=== PATIENT | female | born 1975 | race Caucasian/White ===

== ENCOUNTER 2023-08-14 14:25 | Outpatient (OUT) | payer MEDICAID, SELFPAY ==
--- NOTE | 2023-08-14 14:35 | XR_ITS ---
The [address] [address] Patient Name: RAJESH KOROMA MRN: [id number] date: 1975 Sex: F Assigned Patient Location: [facility] Current Patient Location: Accession/Order Number: [id number] Exam Date: 08/14/2023 14:43 Report Date: 08/15/2023 11:34 At the request of: ARMINDA JOHNSTON Procedure: XR knee RT 4V PROCEDURE: XR knee RT 4V HISTORY: Right Knee Pain M25.561 COMPARISON: None. FINDINGS: BONES:No fracture, acute abnormality, or significant arthropathy. SOFT TISSUES:No visible soft tissue swelling. EFFUSION:None visible. OTHER: Negative. XR/XR knee RT 4V IMPRESSION: 1. No acute bone abnormality or appreciable degenerative changes. Electronically authenticated by: JEWELL MCQUEEN Date: 08/15/2023 11:34
== END 2023-08-14 14:26 | disposition home or self-care (01) ==
PROVIDERS: PCP Family Medicine; Visit Provider Nurse Practitioner Family
DX: M25.561 Pain in right knee (principal); W19.XXXA Unspecified fall, initial encounter
CPT/HCPCS: 73564

== ENCOUNTER 2023-11-08 12:56 | Outpatient (OUT) | payer MEDICAID, SELFPAY ==
--- NOTE | 2023-11-08 | XR_ITS ---
The [address] [address] Patient Name: RAJESH KOROMA MRN: [id number] date: 1975 Sex: F Assigned Patient Location: [facility] Current Patient Location: [facility] Accession/Order Number: [id number] Exam Date: 11/08/2023 13:25 Report Date: 11/08/2023 14:07 At the request of: ARNULFO SMITH Procedure: XR foot GEORGINA min 3V EXAMINATION: XR foot GEORGINA min 3V HISTORY: BILATERAL FOOT PAIN COMPARISON: No relevant comparison available. FINDINGS: RIGHT FINDINGS: BONES: Normal. No significant arthropathy or acute abnormality. Enthesopathic spurring plantar calcaneus SOFT TISSUES: Negative. No visible soft tissue swelling. OTHER: Negative. LEFT FINDINGS: BONES: Normal. No significant arthropathy or acute abnormality. Enthesopathic spurring plantar calcaneus SOFT TISSUES: Negative. No visible soft tissue swelling. OTHER: Negative. XR/XR foot GEORGINA min 3V IMPRESSION: RIGHT CONCLUSION: Enthesopathic spurring plantar calcaneus LEFT CONCLUSION: Enthesopathic spurring plantar calcaneus Electronically authenticated by: FRANKIE PIERCE Date: 11/08/2023 14:07
--- OUTSIDE RECORDS SUMMARY | 2023-11-08 12:58 | XMS_ITS | CCD ---
Author Name Unknown Address [address] [place] [address] [id number] [place] [address] Organization [facility] Care Team Providers Care Python Engineer Name Role Phone DARRICK HUMPHRIES Unavailable Unavailable CICI CRENSHAW Unavailable Unavailable CICI CRENSHAW Primary Care Physician JEREMIAH OSWALD Attending Unavailable DR JEWELL MCQUEEN Consulting Unavailable DR CICI CRENSHAW Primary Care Unavailable JEREMIAH OSWALD Admitting Unavailable JEREMIAH OSWALD Consulting Unavailable Lila Junior Unavailable [phone] Allergies Allergy Classification Reported Allergen(s) Allergy Type Date of Onset Reaction(s) Facility (1 source) Desonide Drug Allergy [facility] Repository (5 sources) Adhesive agent Drug allergy Unknown [email or web address] Other (5 sources) Adhesive Tape Drug allergy Comment:mitzy howard [email or web address] Other (5 sources) CT scan dye Propensity to adverse reactions vomiting [email or web address] Other (5 sources) Dye CUSTODIAL Red 40 ([place] Red) *PHARMACEUTICAL ADJUV Propensity to adverse reactions 4 Unknown [email or web address] Other Medications Current Medications Medication Drug Class(es) Dates Sig (Normalized) Sig (Original) acetaminophen 325 mg / HYDROcodone bitartrate 5 mg oral tablet (2 sources) Opioid Agonist Start: 6 [place] 325 mg-5 mg oral tablet 2 tab(s), Oral, q4hr for pain, 40 tab(s), Refill(s) 0 Start Date: 03/01/16 Status: Ordered amoxicillin 875 mg / clavulanate 125 mg oral tablet (1 source) Penicillin-class Antibacterial Start: 3 take 1 tablet by mouth every twelve hours Amoxicillin-Pot Clavulanate 875-125 MG 1 tablet Orally every 12 hrs for 7 days Jun, Active busPIRone hydrochloride 5 mg oral tablet (1 source) Start: 3 take 1 tablet by mouth every twelve hours busPIRone HCl 5 MG 1 tablet Orally Twice a day for 30 days Sep, Active cyclobenzaprine hydrochloride 10 mg oral tablet (2 sources) Muscle Relaxant Start: 3 take 1 tablet by mouth every twenty-four hours Cyclobenzaprine HCl 10 MG 1 tablet at bedtime as needed Orally Once a day for 10 days Aug, Active methylPREDNISolone 4 mg oral tablet (2 sources) Corticosteroid Start: 3 methylPREDNISolone 4 MG as directed Orally daily for 6 days Aug, Active naproxen 500 mg oral tablet (1 source) Nonsteroidal Anti-inflammatory Drug Start: 6 Naprosyn 500 mg Tab 500 mg = 1 tab(s), Oral, PRN as needed for pain, Refills(s) 0 Start Date: 02/14/16 Status: Ordered OTC stool softner (1 source) Start: 6 OTC stool softner OTC stool softner, one t ab, Oral, PRN constipation Start Date: 02/14/16 Status: Ordered SUMAtriptan 50 mg oral tablet (1 source) Serotonin-1b and Serotonin-1d Receptor Agonist Start: 6 take 1 tablet by mouth once daily SUMAtriptan 50 mg Tab 50 mg = 1 tab(s), Oral, Daily, Refills(s) 0, Migraine headache Start Date: 02/14/16 Status: Ordered Completed/Discontinued Medications Medication Drug Class(es) Dates Sig (Normalized) Sig (Original) lubiprostone 0.024 mg oral capsule (1 source) Chloride Channel Activator Start: 02-14-2016 take 1 capsule by mouth twice daily Amitiza 24 mcg Cap 24 microgram = 1 cap(s), Oral, BID, # 60 cap(s), Refills(s) 0 Start Date: 02/14/16 Status: Ordered Toradol 30 mg/ml (2 sources) Start: 08-28-2023 Toradol 30 mg/ml Aug, 60 mg Problems Active Problems Problem Classification Problem Date Documented Da te Episodic/Chronic Abdominal pain (4 sources) Unspecified abdominal pain; Translations: [UNSPECIFIED ABDOMINAL PAIN] Onset: 10-31-2022 Episodic Anxiety disorders (2 sources) Anxiety; Translations: [Anxiety disorder, unspecified] Chronic E Codes: Fall (1 source) Unspecified fall, initial encounter Episodic E Codes: Natural/environment (1 source) Exposure to other specified factors, initial encounter; Translations: [EXPOSURE OTHER SPEC FACTORS INITIAL] Onset: 11-02-2022 Episodic Genitourinary symptoms and ill-defined conditions (5 sources) Mixed incontinence; Translations: [Mixed urinary incontinence] Chronic Headache; including migraine (1 source) Migraine 02-14-2016 Chronic Mood disorders (1 source) Depression 02-15-2022 Chronic Nonmalignant breast conditions (5 sources) Nodule of skin of breast; Translations: [Unspecified lump in unspecified breast] Episodic Other connective tissue disease (1 source) Fibromyalgia 02-15-2022 Episodic Other connective tissue disease (1 source) Foot pain 02-14-2016 Episodic Other gastrointestinal disorders (5 sources) Irritable bowel syndrome; Translations: [Irritable bowel syndrome without diarrhea] 02-14-2016 Chronic Other gastrointestinal disorders (1 source) Irritable bowel syndrome without diarrhea; Translations: [Irritable bowel syndrome] Chronic Other gastrointestinal disorders (5 sources) Irritable bowel syndrome characterized by constipation; Translations: [Irritable bowel syndrome with constipation] Chronic Other gastrointestinal disorders (1 source) Other constipation; Translations: [Other constipation] Onset: 02-15-2022 Episodic Other gastrointestinal disorders (1 source) Chronic constipation 02-15-2022 Episodic Other gastrointestinal disorders (5 sources) Constipation; Translations: [Constipation, unspecified] Episodic Other non-traumatic joint disorders (1 source) Pain in left knee; Translations: [Acute pain of left knee] Episodic Other non-traumatic joint disorders (2 sources) Pain in right knee; Translations: [Acute pain of right knee] Episodic Other non-traumatic joint disorders (8 sources) Arthralgia of the lower leg; Translations: [Pain in left knee] Episodic Other nutritional; endocrine; and metabolic disorders (5 sources) Body mass index 30+ - obesity; Translations: [Body mass index (BMI) 32.0-32.9, adult] Chronic Other skin disorders (1 source) Hyperhidrosis 02-18-2016 Episodic Other upper respiratory infections (1 source) Acute maxillary sinusitis, unspecified Episodic Spondylosis; intervertebral disc disorders; other back problems (6 sources) Muscle spasm of back; Translations: [Low back pain] Onset: 11-02-2022 Episodic Sprains and strains (1 source) Strain of muscle, fascia and tendon of lower back, initial encounter; Translations: [STRAIN MUSC FASC TENDON LW BACK INT] Onset: 11-02-2022 Episodic Unclassified (1 source) Low back pain, unspecified; Translations: [Low back pain, unspecified] Past or Other Problems Problem Classification Problem Date Documented Da te Episodic/Chronic Suicide and intentional self-inflicted injury (2 sources) Suicidal thoughts; Translations: [Suicide attempt ] Onset: 10-22-1994 02-15-2022 Episodic Viral infection (5 sources) Disease caused by 2019-nCoV; Translations: [COVID-19] Results Test Name Value Interpretation Reference Range Facility AMYLASEon 10-31-2022 Amylase [Catalytic activity/Vol] 82 U/L Normal 25-115 [facility] Comment on above: Performed By: #### A MY LIPA #### [facility] [address] [place] [address] Dr. Amita Leyva CBC AUTO DIFFon 10-31-2022 BASO # 0.0 103/ul Normal 0.0-0.1 [facility] Comment on above: Performed By: #### C BC #### [facility] [address] [place] [address] Dr. Amita Leyva Basophils/100 WBC (Bld) 0.5 % Normal 0.2-2.0 [facility] Comment on above: Performed By: #### C BC #### [facility] [address] [place] [address] Dr. Amita Leyva EO # 0.2 103/ul Normal 0.0-0.7 [facility] Comment on above: Performed By: #### C BC #### [facility] [address] [place] [address] Dr. Amita Leyva Eosinophils/100 WBC (Bld) 2.7 % Normal 0.9-7.0 [facility] Comment on above: Performed By: #### C BC #### [facility] [address] [place] [address] Dr. Amita Leyva Erythrocyte distribution width (RBC) [Ratio] 12.4 % Normal 11.0-15.0 [facility] Comment on above: Performed By: #### C BC #### [facility] [address] [place] [address] Dr. Amita Leyva Hematocrit (Bld) [Volume fraction] 40.8 % Normal 36.0-48.0 [facility] Comment on above: Performed By: #### C BC #### [facility] [address] [place] [address] Dr. Amita Leyva Hemoglobin (Bld) [Mass/Vol] 14.1 g/dL Normal 12.0-16.0 [facility] Comment on above: Performed By: #### C BC #### [facility] [address] [place] [address] Dr. Amita Leyva IG # 0.02 10e3/ul Normal 0.00-0.03 [facility] Comment on above: Performed By: #### C BC #### [facility] [address] [place] [address] Dr. Amita Leyva IG % 0.4 % Normal 0.0-0.5 [facility] Comment on above: Performed By: #### C BC #### [facility] [address] [place] [address] Dr. Amita Leyva LYMPH # 1.9 103/ul Normal 1.2-3.8 [facility] Comment on above: Performed By: #### C BC #### [facility] [address] [place] [address] Dr. Amita Leyva Lymphocytes/100 WBC (Bld) 33.3 % Normal 20.5-60.0 [facility] Comment on above: Performed By: #### C BC #### [facility] [address] [place] [address] Dr. Amita Leyva MANUAL DIFF REQ NO Normal [facility] Comment on above: Performed By: #### C BC #### [facility] [address] [place] [address] Dr. Amita Leyva MCH (RBC) [Entitic mass] 30.4 pg Normal 26.7-34.0 [facility] Comment on above: Performed By: #### C BC #### [facility] [address] [place] [address] Dr. Amita Leyva MCHC (RBC) [Mass/Vol] 34.6 g/dL Normal 29.9-35.2 [facility] Comment on above: Performed By: #### C BC #### [facility] [address] [place] [address] Dr. Amita Leyva MCV (RBC) [Entitic vol] 87.9 fL Normal 81.0-99.0 [facility] Comment on above: Performed By: #### C BC #### [facility] [address] [place] [address] Dr. Amita Leyva MONO # 0.4 103/ul Normal 0.3-0.8 [facility] Comment on above: Performed By: #### C BC #### [facility] [address] [place] [address] Dr. Amita Leyva Monocytes/100 WBC (Bld) 7.7 % Normal 1.7-12.0 [facility] Comment on above: Performed By: #### C BC #### [facility] [address] [place] [address] Dr. Amita Leyva NEUT # 3.1 103/ul Normal 1.4-6.5 [facility] Comment on above: Performed By: #### C BC #### [facility] [address] [place] [address] Dr. Amita Leyva Neutrophils/100 WBC (Bld) 55.4 % Normal 43.0-75.0 [facility] Comment on above: Performed By: #### C BC #### [facility] [address] [place] [address] Dr. Amita Leyva Platelet mean volume (Bld) [Entitic vol] 9.9 fL Normal 9.5-13.5 [facility] Comment on above: Performed By: #### C BC #### [facility] [address] [place], [place] [id number] Dr. Amita Leyva PLT 313 103/ul Normal 150-450 [facility] Comment on above: Performed By: #### C BC #### [facility] [address] [place] [address] Dr. Amita Leyva RBC 4.64 106/ul Normal 4.20-5.40 [facility] Comment on above: Performed By: #### C BC #### [facility] [address] [place] [address] Dr. Amita Leyva WBC 5.6 103/ul Normal 4.0-11.0 [facility] Comment on above: Performed By: #### C BC #### [facility] [address] [place] [address] ABD/PELVIS WO CONon 10-31 CT ABD/PELVIS WO CON EXAMINATION: CT ABD/PELVIS WO CON HISTORY: CALCULUS OF KIDNEY ; acute right flank pain COMPARISON: No relevant comparison available. TECHNIQUE: Axial, Coronal, and Sagittal images were obtained without and/or with IV contrast as indicated by examination type. Dose reduction techniques were achieved by using automated exposure control and/or adjustment of mA and/or kV according to patient size and/or use of iterative reconstruction technique. FINDINGS: LUNG BASES: No visible pulmonary or pleural disease. LIVER: No enlargement, atrophy, suspicious density, or significant focal lesion. BILIARY: Slightly indistinct margins of the gallbladder without appreciable stones or abnormal duct dilation. PANCREAS: Minimal haziness of fat along the inferior margin of head of pancreas. No lesion, fluid collection, or abnormal duct dilatation. SPLEEN: No enlargement or focal lesion. ADRENALS: No mass or enlargement. KIDNEYS: No mass, obstruction, or calcification. BOWEL/MESENTERY: No visible mass, obstruction, or bowel wall thickening. Normal appendix. AORTA/VASCULAR: No aneurysm or dissection. RETROPERITONEUM: No mass or adenopathy. LYMPH NODES: No adenopathy. URINARY BLADDER: No visible focal wall thickening, lesion, or calculus. PELVIC ORGANS: No visible mass. Pelvic organs appropriate for patient age. ABDOMINAL WALL: No mass or hernia. BONES: L5-S1 marked degenerative disc disease. OTHER: Negative. IMPRESSION: 1. No urinary tract calculi obstructive uropathy. 2. Possible mild cholecystitis or mild pancreatitis. Correlate with clinical symptoms. 3. Unremarkable bowel. Normal appendix. Electronically authenticated by: JEWELL MCQUEEN Date: 2022-10-31 11:31 Normal [facility] ER URINE PROFILEon 3 Bilirubin Ql (U) Negative Normal NEGATIVE [facility] Comment on above: Performed By: #### E RUR, PREGU #### [facility] [address] [address] [address] Amita Leyva Clarity (U) CLEAR Normal CLEAR [facility] Comment on above: Performed By: #### E RUR, PREGU #### [facility] [address] [place] [address] Dr. Amita Leyva Color (U) LT. YELLOW Normal YELLOW [facility] Comment on above: Performed By: #### E RUR, PREGU #### [facility] [address] [place] [address] Dr. Amita Leyva ERUAHD A micrscopic examina tion will be performed if indicated. Normal [facility] Comment on above: Performed By: #### E RUR, PREGU #### [facility] [address] [place] [address] Dr. Amita Leyva Glucose Ql (U) Negative Normal NEGATIVE [facility] Comment on above: Performed By: #### E RUR, PREGU #### [facility] [address] [place] [address] Dr. Amita Leyva Hemoglobin Ql (U) Negative Normal NEGATIVE [facility] Comment on above: Performed By: #### E RUR, PREGU #### [facility] [address] [place] [address] Dr. Amita Leyva Ketones Ql (U) Negative Normal NEGATIVE [facility] Comment on above: Performed By: #### E RUR, PREGU #### [facility] [address] [place] [address] Dr. Amita Leyva LEUKOCYTES Negative Normal NEGATIVE [facility] Comment on above: Performed By: #### E RUR, PREGU #### [facility] [address] [place] [address] Dr. Amita Leyva Nitrite Ql (U) Negative Normal NEGATIVE [facility] Comment on above: Performed By: #### E RUR, PREGU #### [facility] [address] [place] [address] Dr. Amita Leyva pH (U) 6.0 [pH] Normal 5-9 [facility] Comment on above: Performed By: #### E RUR, PREGU #### [facility] [address] [place] [address] Dr. Amita Leyva SPEC GRAVITY >=1.030 Abnormal 1.005-<=1.025 [facility] Comment on above: Performed By: #### E RUR, PREGU #### [facility] [address] [place] [address] Dr. Amita Leyva UA PROTEIN Negative Normal NEGATIVE/ TRACE [facility] Comment on above: Performed By: #### E RUR, PREGU #### [facility] [address] [place] [address] Dr. Amita Leyva UR MICRO IND NOT INDICATED Normal [facility] Comment on above: Performed By: #### E RUR, PREGU #### [facility] [address] [place] [address] Dr. Amita Leyva Urobilinogen Qn (U) 0.2 {Selina'U}/dL Normal 0.2 - 1.0 [facility] Comment on above: Performed By: #### E RUR, PREGU #### [facility] [address] [place] [address] Dr. Amita Leyva LIPASEon 10-31-2022 Lipase [Catalytic activity/Vol] 152.0 U/L Normal 73.0-393.0 [facility] Comment on above: Performed By: #### A MY, LIPA #### [facility] [address] [place] [address] Dr. Amita Leyva URon 10-31-2022 , QUAL Negative Normal NEGATIVE [facility] Comment on above: Performed By: #### E RUR, PREGU #### [facility] [address] [place] [address] Dr. Amita Leyva PROF 14(COMP METB)on 023 Albumin [Mass/Vol] 4.3 g/dL Normal 3.4-5.0 [facility] Comment on above: Performed By: #### C MP #### [facility] [address] [place] [address] Dr. Amita Leyva Albumin/Globulin [Mass ratio] 1.3 {ratio} Normal [facility] Comment on above: Performed By: #### C MP #### [facility] [address] [place] [address] Dr. Amita Leyva ALP [Catalytic activity/Vol] 69 U/L Normal 46-116 [facility] Comment on above: Performed By: #### C MP #### [facility] [address] [place] [address] Dr. Amita Leyva ALT [Catalytic activity/Vol] 18 U/L Normal 14-59 [facility] Comment on above: Performed By: #### C MP #### [facility] [address] [place] [address] Dr. Amita Leyva Anion gap [Moles/Vol] 13.5 mmol/L Normal [facility] Comment on above: Performed By: #### C MP #### [facility] [address] [place] [address] Dr. Amita Leyva AST [Catalytic activity/Vol] 21 U/L Normal 15-37 [facility] Comment on above: Performed By: #### C MP #### [facility] [address] [place] [address] Dr. Amita Leyva Bilirubin [Mass/Vol] 0.3 mg/dL Normal 0.2-1.0 [facility] Comment on above: Performed By: #### C MP #### [facility] [address] [place] [address] Dr. Amita Leyva Calcium [Mass/Vol] 9.2 mg/dL Normal 8.5-10.1 [facility] Comment on above: Performed By: #### C MP #### [facility] [address] [place] [address] Dr. Amita Leyva Chloride [Moles/Vol] 105 mmol/L Normal 98-107 [facility] Comment on above: Performed By: #### C MP #### [facility] [address] [address] [address] Amita Leyva CO2 [Moles/Vol] 26.6 mmol/L Normal 21.0-32.0 [facility] Comment on above: Performed By: #### C MP #### [facility] [address] [address] [address] Amita Leyva Creatinine [Mass/Vol] 0.76 mg/dL Normal 0.55-1.02 [facility] Comment on above: Performed By: #### C MP #### [facility] [address] [place] [address] Dr. Amita Leyva EGFR-AF MEXICAN >60 Normal >=60 [facility] Comment on above: Performed By: #### C MP #### [facility] [address] [address] [address] Amita Leyva EGFR-NON AF MEXICAN >60 Normal >=60 [facility] Comment on above: Performed By: #### C MP #### [facility] [address] [address] [address] Amita Leyva Globulin (S) [Mass/Vol] 3.2 g/dL Normal [facility] Comment on above: Performed By: #### C MP #### [facility] [address] [address] [address] Amita Leyva Glucose [Mass/Vol] 124 mg/dL Critically high 74-106 [facility] Comment on above: Performed By: #### C MP #### [facility] [address] [address] [address] Amita Leyva Potassium [Moles/Vol] 4.1 mmol/L Normal 3.5-5.1 [facility] Comment on above: Performed By: #### C MP #### [facility] [address] [address] [address] Amita Leyva Protein [Mass/Vol] 7.5 g/dL Normal 6.4-8.2 [facility] Comment on above: Performed By: #### C MP #### [facility] [address] [place], [place] [address] Dr. Amita Leyva Sodium [Moles/Vol] 141 mmol/L Normal 136-145 [facility] Comment on above: Performed By: #### C MP #### [facility] [address] [place], [place] [address] Dr. Amita Leyva Urea nitrogen [Mass/Vol] 16.0 mg/dL Normal 7.0-18.0 [facility] Comment on above: Performed By: #### C MP #### [facility] [address] [place], [place] [address] Dr. Amita Leyva Urea nitrogen/Creatinin e [Mass ratio] 21.1 mg/mg Normal [facility] Comment on above: Performed By: #### C MP #### [facility] [address] [address] [address] Amita Leyva US SINGLE QUAD RT UPPERon US SINGLE QUAD RT UPPER EXAMINATION: US SINGLE QUAD RT UPPER HISTORY: Pain ; acute right flank pain COMPARISON: CT abdomen pelvis 10/31/2022 TECHNIQUE: Transabdominal evaluation of the right upper quadrant. FINDINGS: LIVER: Normal size and echotexture. Color Doppler demonstrates patent hepatic veins. PORTAL VEIN: Duplex Doppler demonstrates normal hepatopetal flow pattern with flow velocity averaging 49 cm/s. GALLBLADDER: No visible gallstones, wall thickening, or pericholecystic free fluid. Negative sonographic Lynch's sign. BILIARY: No abnormal dilation or stones. Common bile duct diameter is within normal limits. PANCREASE: No visible mass, abnormal atrophy, or duct dilation. KIDNEY: No hydronephrosis. No visible mass or stones. Size: 11.7 x 4.8 x 5.6 cm IMPRESSION: 1. No ultrasound evidence of cholelithiasis or cholecystitis; wall thickness is within normal limits. 2. No specific findings to account for patient's symptoms. Electronically authenticated by: JEWELL MCQUEEN Date: 2022-10-31 13:17 Normal [facility] Registrationon 12-02-2021 Registration [id number]#1.00CD:[address] [facility] Cons[place] 11-28-2021 Consent [id number]#[id number]:12 7 Normal [facility] Registrationon 11-28-2021 Registration [id number]#1.00CD:[address] [facility] CNPNon 02-22-2018 CNPN Telephone (GASTTW) Kourtney LUA ([id number]) 1975 FDate Time Provider Department02/22/18 DARRICK HUMPHRIES GASTTW During your visit today, we recorded the following information about you:Mariano Horner 02/22/2018 10:36 AM AddendumLeonela Lua is calling Darrick Humphries today with concern regarding IBSand hemorrhoids. Patient relays she has rectal bleeding from her internal andexternal hemorrhoids so bad that she went to an ED. Patient relays that hercolorectal surgeon will not perform her hemorrhoid surgery until her IBS isunder control. Patient states the Trulance is not helping her at all.Patient has been identified by name and birthdate.Duration of symptoms: N/APerson calling: selfCall patient at: on [phone] (home) [phone] (cell)Was an appointment scheduled: NoClosing statement:Symptom Call: Thank you for calling [facility], your call is veryimportant. A nurse will call in approximately 2-4 hours during business hours.If this is an emergency, please contact 911.Mariano Freeman PsrPt advised to add Miralax to her regimen.Darrick Humphries MD, MPHLisette Mock ([place]) 02/22/2018 10:48 AM SignedPlease advise per message below. ThanksSARA MIKE, MAMrenita 2017 10:47 AMAleida PSRMargie 03/04/2018 3:46 PM SignedPatient is calling in regards to message below. Patient is suppose to havesurgery and the general surgeon will not do surgery on her until the IBS isunder control. Patient would like to know if she can get a letter written to beoff work til she is seen by Dr. Humphries. Please advise [phone], Kaitlin (Rn), RN 03/04/2018 3:52 PM SignedPlease see pt message and advise.Thank you.Barbara Brown 2017 3:52 PMAllergies As of Date: 02/22/2018(No Known Allergies)Date Reviewed: 01/15/2018Reviewed by: Dada YeagerRn), RN - Fully AssessedReason for Visit: IBS and hemorrhoids [Other]Reason For Visit History RecordedPrescriptions as of 02/22/2018 Sig: PLECANATIDE 3 MG TABLET Take 1 tablet by mouth once d* PREMARIN ORAL Take 1 tablet by mouth once d* DAILY FIBER ORAL Take 1 capsule by mouth three* LINACLOTIDE 72 MCG CAPSULE Take 1 capsule by mouth once * DICYCLOMINE 10 MG CAP (BENTYL* Take 10 mg by mouth as needed. FIBERCON 625 MG TABLET Take one(1) tablet daily. ONE-A-DAY WITHIN TABLET Take one(1) tablet daily. ULTRACET 37.5 MG-325 MG TABLET two tablets at bedtime LEXAPRO 10 MG TABLET Take one(1) tablet daily. TYLENOL PM 25 MG-500 MG TABLET two tablets at bedtime DULCOLAX (BISACODYL) 5 MG TAB* two tablets at bedtimeProblem List As Of Date: 02/22/2018(None) Status:Closed by DARRICK HUMPHRIES MD on 03/01/18 [facility] [place] 01-16-2018 [facility] Telephone (GASTTW) Kourtney LUA ([id number]) 1975 FDate Time Provider Department01/16/18 DARRICK HUMPHRIES During your visit today, we recorded the following information about you:Dada Yeager RN, RN 01/16/2018 10:20 AM SignedPA initiated for Trulance via Cover My Meds.Awaiting determination.[facility] 2017 10:20 AMDada Yeager RN, RN 01/17/2018 1:03 PM SignedPA for trulance approved via cover my meds.Approved on January 16CaseId:[id number],Status: ApprovedCoverage Start Date:12/17/2017;Coverage End Date:01/16/2019CaseId:[id number] notified.Dada Yeager RNSt[facility] 2017 1:03 PMAllergies As of Date: 01/16/2018(No Known Allergies)Date Reviewed: 01/15/2018Reviewed by: Dada Waldrop) MATIAS Yeager - Fully AssessedReason for Visit: Insurance Authorization [[id number]]Prescriptions as of 01/16/2018 Sig: PREMARIN ORAL Take 1 tablet by mouth once d* DAILY FIBER ORAL Take 1 capsule by mouth three* LINACLOTIDE 72 MCG CAPSULE Take 1 capsule by mouth once * DICYCLOMINE 10 MG CAP (BENTYL* Take 10 mg by mouth as needed. PLECANATIDE 3 MG TABLET Take 1 tablet by mouth once d* FIBERCON 625 MG TABLET Take one(1) tablet daily. ONE-A-DAY WITHIN TABLET Take one(1) tablet daily. ULTRACET 37.5 MG-325 MG TABLET two tablets at bedtime LEXAPRO 10 MG TABLET Take one(1) tablet daily. TYLENOL PM 25 MG-500 MG TABLET two tablets at bedtime DULCOLAX (BISACODYL) 5 MG TAB* two tablets at bedtimeProblem List As Of Date: 01/16/2018(None) Status:Closed by DADA YEAGER on 01/16/18 [facility] CNCOon 01-15-2018 CNCO Letter Wilmer Lua:How to activate your [facility] Utility Funding Account 1. Visit the Utility Funding Signup page at [email or web address] 2. Identify yourself using your one-time use activation code: [email or web address] 3. Follow the on-screen prompts to choose your own secure username andpasswordThe following information will be necessary to access your account for thefirst time:Information needed for sign-up:Your custom activation code used one-time only for the initial accountset-up.Your date of birthThe last 4 digits of your social security numberWhat to do next:Fill in the requested information on the Identify Yourself Form [email or web address] , click Next.Create your login and password, choose a Utility Funding ID and password that will beeasy for you to use, but impossible for anyone else to guess.Pick a security question that will assist you in the event you forget yourpassword the next time you log-on.If you have difficulty activating your account, please call our [employer] at [phone] or toll free at .We hope you enjoy using Utility Funding!Kindest Regards,[facility] Utility Funding Team [facility] CNOVon 01-15-2018 CNOV Office Visit (GASTTW) Kourtney LUA ([id number]) 1975 FDate Time Provider Department01/15/18 2:40 PM DARRICK HUMPHRIES During your visit today, we recorded the following information about you: Pulse Respiration Blood pressure Weight 64/minute 16/minute 143/88 84.4 kgBrebell Humphries MD, MPH 01/15/2018 2:52 PM SignedNAME: Leonela JaimengerAGE: 42 year oldReferred by: Cici Crenshaw MD ([facility])[address] [place] [address]Ucnpxgbn for: an opinion regarding constipation and my final recommendationswill be communicated back to the requesting physician by way of shared MedicalRecord.GENERAL ROS:Colon polyps: NoColon cancer: NoOther cancer: NoRadiation / Chemotherapy: NoCrohn's disease / Ulcerative colitis: NoHigh cholesterol or triglycerides: NoUlcers: NoGallstones: NoHepatitis / jaundice: NoHeart Disease: NoLung Disease: NoLiver problems:NoThyroid disease: NoKidney stones: NoPancreatitis: NoDiabetes: NoArthritis: NoRheumatic fever:NoGastrointestinal bleeding: NoDepression or other mental illness:Yes, DepressionOther personal illness:NoFAMILY HISTORY:Liver problems: NoColitis: NoColon cancer:NoOther cancers: Yes, Mother-brain tumor, ; Father-brain tumorNo past surgical history on file.GI SPECIFIC ROS:Difficulty swallowing / foods sticking in throat:NoHeartburn:Yes, OccasionallyHoarseness: NoChronic cough: NoRegurgitation: NoChest pain: NoFilling up quickly at meals: NoLoss of appetite:NoNausea: NoVomiting: NoAbdominal pain:YesRecent change in bowel movements: NoBloody or black, bowel movements: NoConstipation: YesDiarrhea: Yes, occasionallyLoss of control of bowel movements: YesNight sweats, fever, chills: YesThought or memory problems: NoFluid in abdomen (ascites):NoProminent leg swelling:NoVomiting blood: NoRecent change in weight: NoCURRENT MEDICATIONS:Current Outpatient Prescriptions:FIBERCON 625MG TABLET Take one(1) tablet daily.ONE-A-DAY WOMEN'S TABLET Take one(1) tablet daily.ULTRACET TABLET two tablets at bedtimeLEXAPRO 10MG TABLET Take one(1) tablet daily.TYLENOL P.M. EX-STR CAPLET two tablets at bedtimeDULCOLAX 5MG TABLET EC two tablets at bedtimeNo current facility-administered medications for this visit.ALLERGIES:Review of patient's allergies indicates not on file.PERSONAL HABITS:Tobacco: NoAlcohol: Yes, How Many? A few drinks/yearCoffee: NoThe above documentation completed by Dada Yeager RNSt. [facility] Hospital 2017 2:36 PM PRESENTING COMPLAINT ANDamp; HISTORY:No chief complaint on file.History: 42 Yo with IBS-C - Everette 145mcg gave her diarrhea., no on 72 mcg -incomplete evac. 3-5 bm daily, watery. With no meds 7-10 days without a bm.Amitiza, ducolax, miralax, correctal did not help. Colonoscopy - 06/01/17 -normal. wt stable, no fever, no bleeding. +abd pain, better with a bm.PHYSICAL EXAMINATION:General Appearance: Cooperative, in no acute distress, alert.Eyes: Conjunctivas/corneas clear.Oropharynx: Lips, tongue, and oral mucosa normal.Thyroid: No goiter.Lungs: Lungs clear to auscultation, no wheezing or rhonchi.Heart: RRR without murmur, gallop or rubs.Abdomen: Bowel sounds normal. Soft and non-tender. No masses or organomegaly.Extremities: Normal, with no deformities or edema.Skin: No rashes or lesions.Lymph:No cervical, axillary, supraclavicular, or inguinal adenopathy.Pulses: normalBruits: No.Joints: No deformity. Good range of motion.IMPRESSION:IBS-C - will try Trulance 3mg daily.Darrick Humphries MD, MPHReferring Provider: CICI CRENSHAW [[id number]]Allergies As of Date: 01/15/2018(No Known Allergies)Date Reviewed: 01/15/2018Reviewed by: Dada Waldrop) MATIAS Yeager - Fully AssessedReason for Visit: Constipation [25]Primary Visit Diagnosis:Irritable bowel syndrome with constipation [K58.1]Order(s):plecanati de (TRULANCE) 3 mg tabTake 1 tablet by mouth once daily.Disp: 100 tabletRfl: 5Prescriptions as of 01/15/2018 Sig: PREMARIN ORAL Take 1 tablet by mouth once d* DAILY FIBER ORAL Take 1 capsule by mouth three* LINACLOTIDE 72 MCG CAPSULE Take 1 capsule by mouth once * DICYCLOMINE 10 MG CAP (BENTYL* Take 10 mg by mouth as needed. PLECANATIDE 3 MG TABLET Take 1 tablet by mouth once d* FIBERCON 625 MG TABLET Take one(1) tablet daily. ONE-A-DAY WITHIN TABLET Take one(1) tablet daily. ULTRACET 37.5 MG-325 MG TABLET two tablets at bedtime LEXAPRO 10 MG TABLET Take one(1) tablet daily. TYLENOL PM 25 MG-500 MG TABLET two tablets at bedtime DULCOLAX (BISACODYL) 5 MG TAB* two tablets at bedtimeMedication notes this encounter FIBERCON 625 MG TABLET >> Dada Yeager RN, RN 01/15/2018 2:28 PM >> DADA YEAGER Jan 15, 2018 2:28 PM Not taking ONE-A-DAY WITHIN TABLET >> Dada Yeager RN, RN 01/15/2018 2:29 PM >> DADA YEAGER Jan 15, 2018 2:29 PM Not taking ULTRACET 37.5 MG-325 MG TABLET >> Dada Yaeger RN, RN 01/15/2018 2:29 PM >> DADA YEAGER Jan 15, 2018 2:29 PM Not taking LEXAPRO 10 MG TABLET >> Dada Yeager RN, MATIAS 01/15/2018 2:29 PM >> DADA YEAGER Jan 15, 2018 2:29 PM Not taking TYLENOL PM 25 MG-500 MG TABLET >> Dada Yeager RN, RN 01/15/2018 2:28 PM >> DADA YEAGER Jan 15, 2018 2:28 PM Not taking DULCOLAX (BISACODYL) 5 MG TABLET,DELAYED RELEASE >> Dada Yeager RN, MATIAS 01/15/2018 2:28 PM >> DADA YEAGER Jan 15, 2018 2:28 PM Not takingProblem List As Of Date: 01/15/2018(None)Prescript ions ordered this encounter Disp Refills Start End PLECANATIDE 3 MG TABLET 100 * 5 01/15/2018 Class: Print RX Route: ORAL Sig: Take 1 tablet by mouth once daily. Status:Closed by DARRICK HUMPHRIES MD on 01/15/18 [facility] PROGRESSon 01-15-2018 PROGRESS HNO ID: [id number] thor: Darrick Hallmanervice: (none)Author Type: PhysicianType: Progress NotesFiled: 01/15/2018 2:52 PMNote Text:NAME: Leonela JaimengerAGE: 42 year oldReferred by: Cici Crenshaw MD ([facility])[address] [phone] for: an opinion regarding constipation and my finalrecommendations will be communicated back to the requesting physician byway of shared Medical Record.GENERAL ROS:Colon polyps: NoColon cancer: NoOther cancer: NoRadiation / Chemotherapy: NoCrohn's disease / Ulcerative colitis: NoHigh cholesterol or triglycerides: NoUlcers: NoGallstones: NoHepatitis / jaundice: NoHeart Disease: NoLung Disease: NoLiver problems:NoThyroid disease: NoKidney stones: NoPancreatitis: NoDiabetes: NoArthritis: NoRheumatic fever:NoGastrointestinal bleeding: NoDepression or other mental illness:Yes, DepressionOther personal illness:NoFAMILY HISTORY:Liver problems: NoColitis: NoColon cancer:NoOther cancers: Yes, Mother-brain tumor, ; Father-brain tumorNo past surgical history on file.GI SPECIFIC ROS:Difficulty swallowing / foods sticking in throat:NoHeartburn:Yes, OccasionallyHoarseness: NoChronic cough: NoRegurgitation: NoChest pain: NoFilling up quickly at meals: NoLoss of appetite:NoNausea: NoVomiting: NoAbdominal pain:YesRecent change in bowel movements: NoBloody or black, bowel movements: NoConstipation: YesDiarrhea: Yes, occasionallyLoss of control of bowel movements: YesNight sweats, fever, chills: YesThought or memory problems: NoFluid in abdomen (ascites):NoProminent leg swelling:NoVomiting blood: NoRecent change in weight: NoCURRENT MEDICATIONS:Current Outpatient Prescriptions:FIBERCON 625MG TABLET Take one(1) tablet daily.ONE-A-DAY WOMEN'S TABLET Take one(1) tablet daily.ULTRACET TABLET two tablets at bedtimeLEXAPRO 10MG TABLET Take one(1) tablet daily.TYLENOL P.M. EX-STR CAPLET two tablets at bedtimeDULCOLAX 5MG TABLET EC two tablets at bedtimeNo current facility-administered medications for this visit.ALLERGIES:Review of patient's allergies indicates not on file.PERSONAL HABITS:Tobacco: NoAlcohol: Yes, How Many? A few drinks/yearCoffee: NoThe above documentation completed by Chalo Brown 2017 2:36 PM PRESENTING COMPLAINT AND HISTORY:No chief complaint on file.History: 42 Yo with IBS-C - Linzess 145mcg gave her diarrhea., no on 72mcg - incomplete evac. 3-5 bm daily, watery. With no meds 7-10 dayswithout a bm. Amitiza, ducolax, miralax, correctal did not help.Colonoscopy - 06/01/17 - normal. wt stable, no fever, no bleeding. +abdpain, better with a bm.PHYSICAL EXAMINATION:General Appearance: Cooperative, in no acute distress, alert.Eyes: Conjunctivas/corneas clear.Oropharynx: Lips, tongue, and oral mucosa normal.Thyroid: No goiter.Lungs: Lungs clear to auscultation, no wheezing or rhonchi.Heart: RRR without murmur, gallop or rubs.Abdomen: Bowel sounds normal. Soft and non-tender. No masses ororganomegaly.Extremitie s: Normal, with no deformities or edema.Skin: No rashes or lesions.Lymph:No cervical, axillary, supraclavicular, or inguinal adenopathy.Pulses: normalBruits: No.Joints: No deformity. Good range of motion.IMPRESSION:IBS-C - will try Trulance 3mg daily.Darrick Humphries MD, MPH [facility] Vital Signs Date Time Vital Sign Value Performing Clinician Facility 08-28-2023 13:30-0500 Body height 157.48 cm Lila Junior Other [email or web address] Other 08-28-2023 13:30-0500 Body mass index (BMI) [Ratio] 36.58 kg/m2 Lila Sandi Other [email or web address] Other 08-28-2023 13:30-0500 Body weight 90.72 kg Lila Sandi Other [email or web address] Other 08-28-2023 13:30-0500 Diastolic blood pressure 84 mm[Hg] Lila Junior Other [email or web address] Other 08-28-2023 13:30-0500 SaO2% (BldA) [Mass fraction] 98 % Lila Junior Other [email or web address] Other 08-28-2023 13:30-0500 Systolic blood pressure 124 mm[Hg] Lila Junior Other [email or web address] Other 08-14-2023 14:00-0400 Body height 157.48 cm Lila Junior Other [email or web address] Other 08-14-2023 14:00-0400 Body mass index (BMI) [Ratio] 36.03 kg/m2 Lila Vur Other [email or web address] Other 08-14-2023 14:00-0400 Body weight 89.36 kg Lila Madisonacher Other [email or web address] Other 08-14-2023 14:00-0400 Diastolic blood pressure 86 mm[Hg] Lila Madisonacher Other [email or web address] Other 08-14-2023 14:00-0400 SaO2% (BldA) [Mass fraction] 99 % Lila Madisonacher Other [email or web address] Other 08-14-2023 14:00-0400 Systolic blood pressure 140 mm[Hg] Lila Madisonacher Other [email or web address] Other 07-03-2023 14:00-0400 Body height 157.48 cm Lila Vur Other [email or web address] Other 07-03-2023 14:00-0400 Body mass index (BMI) [Ratio] 36.28 kg/m2 Lila Madisonacher Other [email or web address] Other 07-03-2023 14:00-0400 Body weight 89.99 kg Lila Madisonacher Other [email or web address] Other 07-03-2023 14:00-0400 Diastolic blood pressure 84 mm[Hg] Lila Madisonacher Other [email or web address] Other 07-03-2023 14:00-0400 SaO2% (BldA) [Mass fraction] 100 % Lila Adairchristophacher Other [email or web address] Other 07-03-2023 14:00-0400 Systolic blood pressure 136 mm[Hg] Lila Vur Other [email or web address] Other Encounters Encounter Date Encounter Type Care Provider Facility Start: 10-05-2023 End: 10-05-2023 ambulatory Lila Adairrogerior Other [email or web address] Other Start: 10-05-2023 Office outpatient visit 15 minutes Lila Sandi [facility] Start: 08-28-2023 End: 08-28-2023 ambulatory Lila Griceldaacher Other [email or web address] Other Start: 08-28-2023 Office outpatient visit 15 minutes Lila Sandi [facility] Start: 08-15-2023 End: 08-15-2023 ambulatory Lila Horacer Other [email or web address] Other Start: 08-15-2023 Telephone encounter Lila Adairpresley johnson [facility] Start: 08-14-2023 End: 08-14-2023 ambulatory Lila Sandi Other [email or web address] Other Start: 08-14-2023 Office outpatient visit 15 minutes Lila Sandi [facility] Start: 07-03-2023 End: 07-03-2023 ambulatory Lila Griceldaacher Other [email or web address] Other Start: 07-03-2023 Office outpatient visit 15 minutes Lila Griceldaachedawn [facility] Start: 10-31-2022 End: 10-31-2022 ambulatory JEREMIAH OSWALD Facility: Start: 02-22-2022 End: 02-22-2022 Patient encounter procedure Nathaniel Mandel [facility] Start: 01-15-2018 End: 01-16-2018 Ambulatory DARRICK HUMPHRIES [facility] Procedures Date Procedure Procedure Detail Performing Clinician Start: 03-03-2016 Left carpal tunnel release Nathaniel MARCUM Start: 02-18-2016 right carpal tunnel release Nathaniel MARCUM section Nathaniel MARCUM Comment on above: x2 H/O: hysterectomy Nathaniel Sánchez sweat glands clamped 2 Nathaniel MARCUM Comment on above: bilateral underarms Payers Date Payer Category Payer Unknown [id number] 1957 Unknown [id number] Medicaid [id number] 2. [id number] Social History Date Type Detail Facility Tobacco smoking status [facility] Sex Assigned At Sex [facility] Sex Assigned At Sex Assigned At Bir th [email or web address] Other Evaluation note 10-05-2023 Note Date & Type Note Facility 10-05-2023 Evaluation note Encounter Date Diagnosis Assessment Notes Sep, Anxiety (ICD-10 - F41.9) Patient is not suicidal or homicidal at this time. Discussed treatment options with patient today. It was decided in collaboration with the patient to start Buspar twice daily for management with depression/anxie ty. Medication profile and possible SE reviewed with patient today. Patient to take medication as directed and prescribed. Do not skip/miss doses and do not stop abruptly. Patient is not interested in counseling at this time. Warning s/s reviewed with patient today. Patient to go immediately to the ER should patient experience any of these. Follow up in 4 weeks to assess symptoms and medication effectiveness. Patient verbalizes understanding and agrees to treatment plan. [email or web address] Other Evaluation note 08-28-2023 Note Date & Type Note Facility 08-28-2023 Evaluation note Encounter Date Diagnosis Assessment Notes Aug, Mid back pain on right side (ICD-10 - M54.9) Clinical presentation is consistent with back pain Toradol inj given in clinic, pt tolerated well. Rx sent, take as directed. Take medication as prescribed. Complete all doses of medication, even if sx are no longer present. Pt instructed to take medication with food. Informed pt that medication may make pt feel jittery, hungry and give you extra energy. Medication may also increase blood pressure and increase blood sugar. Pt also advised not to take NSAIDs while using steroids. Take muscle relaxer as directed. Do not drink with alcohol or use with other recreational drugs. May cause severe drowsiness. Do not operate a motor vehicle until you know how this medication will effect you. Take muscle relaxer as directed. Do not drink with alcohol or use with other recreational drugs. May cause severe drowsiness. Do not operate a motor vehicle until you know how this medication will effect you.Recommended ice/warm compresses to affected area as directed. Rest. Stretches as tolerated. Advance activity as tolerated. Immediate eval if warning s/s of intractable pain, fevers, loss of motor or sensory function, bowel or bladder incontinence. F/u in 1 week or sooner if new/worsening symptoms despite tx. Pt verbalizes understanding and agrees with tx plan. Pt ambulated out by self. [email or web address] Other Evaluation note 08-14-2023 Note Date & Type Note Facility 08-14-2023 Evaluation note Encounter Date Diagnosis Assessment Notes Jul, Acute pain of right knee (ICD-10 - M25.561) Will obtain an x-ray for evaluation due to fall. RICE therapy. otc ibuprofen/tyleno l prn for pain. ice/warm compresses as directed. immediate eval if warning symptoms of neurovascular compromise. otherwise follow up if new/worsening symptoms. Will call with resutls of x-ray when available. pt verbalizes understanding and agrees c tx plan. Jul, Fall, initial encounter (ICD-10 - W19.XXXA) [email or web address] Other Evaluation note 07-03-2023 Note Date & Type Note Facility 07-03-2023 Evaluation note Encounter Date Diagnosis Assessment Notes Jun, Acute non-recurren t maxillary sinusitis (ICD-10 - J01.00) Will tx tody for bacterial sinusitis based on physical exam and duration of symptoms. Take antibiotic as prescribed, complete entire course of therapy even if symptoms resolve. May OTC Mucinex and Flonase. Supportive care as directed, push fluids and rest, Tylenol/Motrin as directed for aches/fever, warm moist compress over sinuses several times a day, cool mist humidifier, nasal saline spray as directed. Symptoms should improve in the next 3 days, if symptoms persist follow up with PCP. Immediate eval for warning s/sx as discussed. Patient verbalizes understanding and is agreeable to treatment plan. [email or web address] Other Evaluation + Plan note Note Date & Type Note Facility Evaluation + Plan note No data available for this section [facility] Evaluation note Note Date & Type Note Facility Evaluation note No Information [facility] Other History general Narrative - Reported Note Date & Type Note Facility History general Narrative - Reported Type Medical History Constipation Medical History BMI 32.0-32.9,adult Medical History Irritable bowel syndrome Medical History Irritable bowel synd yasmeen with constipation Medical History Breast nodule Medical History Mixed incontinence Medical History COVID Medical History Acute pain of right knee Medical History Acute pain of left knee Surgical History 2 c sections Surgical History hysterectomy Surgical History tonsilectomy Surgical History sweat glands clamped Hospitalization History alergic reaction to the dye in a CT scan [email or web address] Other History general Narrative - Reported Note Date & Type Note Facility History general Narrative - Reported Type Medical History Constipation Medical History BMI 32.0-32.9,adult Medical History Irritable bowel syndrome Medical History Irritable bowel synd yasmeen with constipation Medical History Breast nodule Medical History Mixed incontinence Medical History COVID Medical History Acute pain of right knee Medical History Acute pain of left knee Surgical History 2 c sections Surgical History hysterectomy Surgical History tonsilectomy Surgical History sweat glands clamped Surgical History Bladder lift 11/2018 Hospitalization History alergic reaction to the dye in a CT scan [email or web address] Other Hospital Discharge instructions Note Date & Type Note Facility Hospital Discharge instructions No data available for this section [facility] Summary Purpose Family History No Family History Records FoundNo Family History Records FoundNo Family History Records Found Advance Directives No Advanced Directives Records FoundNo Advanced Directives Records FoundNo Advanced Directives Records Found Additional Source Comments INFORMATION SOURCE (unrecogn ized section and content) DATE CREATED AUTHOR 04/10/2018 [facility] DATE CREATED AUTHOR AUTHOR'S ORGANIZ ATION 02/24/2022 [facility] DATE CREATED AUTHOR AUTHOR'S ORGANIZ ATION 11/02/2022 [facility] REASON FOR VISIT (unrecogniz ed section and content) sinus infectionKnee, Ankle, Eacnm-VqxpB-ewr resultsback pain, pulled musclesinus infection FOR RECORDS PERTAINING TO PATIENTS WHO ARE OR HAVE BEEN ENROLLED IN A CHEMICAL DEPENDENCY/SUBSTANCEABUSE PROGRAM, SOME INFORMATION MAY BE OMITTED. This clinical summary was aggregated from multiple sources. Caution should be exercised in using it in the provision of clinical care. This summary normalizes information from multiple sources, and as a consequence, information in this document may materially change the coding, format and clinical context of patient data. In addition, data may be omitted in some cases. CLINICAL DECISIONS SHOULD BE BASED ON THE PRIMARY CLINICAL RECORDS. [employer] provides no warranty or guarantee of the accuracy or completeness of information in this document.
== END 2023-11-08 12:57 | disposition home or self-care (01) ==
LOC: RAD 12:56
PROVIDERS: PCP Family Medicine; Visit Provider Physician Assistant
DX: M79.671 Pain in right foot (principal); M79.672 Pain in left foot
CPT/HCPCS: 73630

== ENCOUNTER 2023-11-12 08:13 | Outpatient (OUT) | payer MEDICAID, SELFPAY ==
--- NOTE | 2023-11-12 | ECG_ITS ---
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
--- OUTSIDE RECORDS SUMMARY | 2023-11-12 08:20 | XMS_ITS | CCD ---
Author Name Unknown Address [address] [place] [address] [address] [place] [address] Organization [facility] Care Team Providers Care Principal Librarian Name Role Phone DARRICK HUMPHRIES Unavailable Unavailable CICI CRENSHAW Unavailable Unavailable CICI CRENSHAW Primary Care Physician JEREMIAH OSWALD Attending Unavailable DR JEWELL MCQUEEN Consulting Unavailable DR CICI CRENSHAW Primary Care Unavailable JEREMIAH OSWALD Admitting Unavailable JEREMIAH OSWALD Consulting Unavailable Lila Junior Unavailable [phone] Allergies Allergy Classification Reported Allergen(s) Allergy Type Date of Onset Reaction(s) Facility (1 source) Desonide Drug Allergy [facility] Repository (5 sources) Adhesive agent Drug allergy Unknown [email or web address] Other (5 sources) Adhesive Tape Drug allergy Comment:mitzy howard [facility] Other (5 sources) CT scan dye Propensity to adverse reactions vomiting [email or web address] Other (5 sources) Dye [facility] Red 40 ([place] Red) *PHARMACEUTICAL ADJUV Propensity to adverse reactions 4 Unknown [email or web address] Other Medications Current Medications Medication Drug Class(es) Dates Sig (Normalized) Sig (Original) acetaminophen 325 mg / HYDROcodone bitartrate 5 mg oral tablet (2 sources) Opioid Agonist Start: 6 [place] 325 mg-5 mg oral tablet 2 tab(s), [...] [Catalytic activity/Vol] 82 U/L Normal 25-115 [facility] Comment on above: Performed By: #### A MY LIPA #### [facility] [address] [place] [address] Dr. Amita Leyva CBC AUTO DIFFon 10-31-2022 BASO # 0.0 103/ul Normal 0.0-0.1 [facility] Comment on above: Performed By: #### C BC #### [facility] [address] [place] [address] Dr. Amita Leyva Basophils/100 WBC (Bld) 0.5 % Normal 0.2-2.0 [facility] Comment on above: Performed By: #### C BC #### [facility] [address] [place] [address] Dr. Amita Leyva EO # 0.2 103/ul Normal 0.0-0.7 [facility] Comment on above: Performed By: #### C BC #### [facility] [address] [place] [address] Dr. Amita Leyva Eosinophils/100 WBC (Bld) 2.7 % Normal 0.9-7.0 [facility] Comment on above: Performed By: #### C BC #### [facility] [address] [place] [address] Dr. Amita Leyva Erythrocyte distribution width (RBC) [Ratio] 12.4 % Normal 11.0-15.0 [facility] Comment on above: Performed By: #### C BC #### [facility] [address] [place] [address] Dr. Amita Leyva Hematocrit (Bld) [Volume fraction] 40.8 % Normal 36.0-48.0 [facility] Comment on above: Performed By: #### C BC #### [facility] [address] [place] [address] Dr. Amita Leyva Hemoglobin (Bld) [Mass/Vol] 14.1 g/dL Normal 12.0-16.0 [facility] Comment on above: Performed By: #### C BC #### [facility] [address] [place] [address] Dr. Amita Leyva IG # 0.02 10e3/ul Normal 0.00-0.03 [facility] Comment on above: Performed By: #### C BC #### [facility] [address] [place] [address] Dr. Amita Leyva IG % 0.4 % Normal 0.0-0.5 [facility] Comment on above: Performed By: #### C BC #### [facility] [address] [place] [address] Dr. Amita Leyva LYMPH # 1.9 103/ul Normal 1.2-3.8 [facility] Comment on above: Performed By: #### C BC #### [facility] [address] [place] [address] Dr. Amita Leyva Lymphocytes/100 WBC (Bld) 33.3 % Normal 20.5-60.0 [facility] Comment on above: Performed By: #### C BC #### [facility] [address] [place] [address] Dr. Amita Leyva MANUAL DIFF REQ NO Normal [facility] Comment on above: Performed By: #### C BC #### [facility] [address] [place] [address] Dr. Amita Leyva MCH (RBC) [Entitic mass] 30.4 pg Normal 26.7-34.0 [facility] Comment on above: Performed By: #### C BC #### [facility] [address] [place] [address] Dr. Amita Leyva MCHC (RBC) [Mass/Vol] 34.6 g/dL Normal 29.9-35.2 [facility] Comment on above: Performed By: #### C BC #### [facility] [address] [place] [address] Dr. Amita Leyva MCV (RBC) [Entitic vol] 87.9 fL Normal 81.0-99.0 [facility] Comment on above: Performed By: #### C BC #### [facility] [address] [place] [address] Dr. Amita Leyva MONO # 0.4 103/ul Normal 0.3-0.8 [facility] Comment on above: Performed By: #### C BC #### [facility] [address] [place] [address] Dr. Amita Leyva Monocytes/100 WBC (Bld) 7.7 % Normal 1.7-12.0 [facility] Comment on above: Performed By: #### C BC #### [facility] [address] [place] [address] Dr. Amita Leyva NEUT # 3.1 103/ul Normal 1.4-6.5 [facility] Comment on above: Performed By: #### C BC #### [facility] [address] [place] [address] Dr. Amita Leyva Neutrophils/100 WBC (Bld) 55.4 % Normal 43.0-75.0 [facility] Comment on above: Performed By: #### C BC #### [facility] [address] [place] [address] Dr. Amita Leyva Platelet mean volume (Bld) [Entitic vol] 9.9 fL Normal 9.5-13.5 [facility] Comment on above: Performed By: #### C BC #### [facility] [address] [place], [place] [id number] Dr. Amita Leyva PLT 313 103/ul Normal 150-450 [facility] Comment on above: Performed By: #### C BC #### [facility] [address] [place] [address] Dr. Amita Leyva RBC 4.64 106/ul Normal 4.20-5.40 [facility] Comment on above: Performed By: #### C BC #### [facility] [address] [place] [address] Dr. Amita Leyva WBC 5.6 103/ul Normal 4.0-11.0 [facility] Comment on above: Performed By: #### C BC #### [facility] [address] [place] [address] ABD/PELVIS WO CONon [...] JEWELL MCQUEEN Date: 2022-10-31 11:31 Normal [facility] ER URINE PROFILEon 3 Bilirubin Ql (U) Negative Normal NEGATIVE [facility] Comment on above: Performed By: #### E RUR, PREGU #### [facility] [address] [address] [address] Amita Leyva Clarity (U) CLEAR Normal CLEAR [facility] Comment on above: Performed By: #### E RUR, PREGU #### [facility] [address] [place] [address] Dr. Amita Leyva Color (U) LT. YELLOW Normal YELLOW [facility] Comment on above: Performed By: #### E RUR, PREGU #### [facility] [address] [place] [address] Dr. Amita Leyva ERUAHD A micrscopic examina tion will be performed if indicated. Normal [facility] Comment on above: Performed By: #### E RUR, PREGU #### [facility] [address] [place] [address] Dr. Amita Leyva Glucose Ql (U) Negative Normal NEGATIVE [facility] Comment on above: Performed By: #### E RUR, PREGU #### [facility] [address] [place] [address] Dr. Amita Leyva Hemoglobin Ql (U) Negative Normal NEGATIVE [facility] Comment on above: Performed By: #### E RUR, PREGU #### [facility] [address] [place] [address] Dr. Amita Leyva Ketones Ql (U) Negative Normal NEGATIVE [facility] Comment on above: Performed By: #### E RUR, PREGU #### [facility] [address] [place] [address] Dr. Amita Leyva LEUKOCYTES Negative Normal NEGATIVE [facility] Comment on above: Performed By: #### E RUR, PREGU #### [facility] [address] [place] [address] Dr. Amita Leyva Nitrite Ql (U) Negative Normal NEGATIVE [facility] Comment on above: Performed By: #### E RUR, PREGU #### [facility] [address] [place] [address] Dr. Amita Leyva pH (U) 6.0 [pH] Normal 5-9 [facility] Comment on above: Performed By: #### E RUR, PREGU #### [facility] [address] [place] [address] Dr. Amita Leyva SPEC GRAVITY >=1.030 Abnormal 1.005-<=1.025 [facility] Comment on above: Performed By: #### E RUR, PREGU #### [facility] [address] [place] [address] Dr. Amita Leyva UA PROTEIN Negative Normal NEGATIVE/ TRACE [facility] Comment on above: Performed By: #### E RUR, PREGU #### [facility] [address] [place] [address] Dr. Amita Leyva UR MICRO IND NOT INDICATED Normal [facility] Comment on above: Performed By: #### E RUR, PREGU #### [facility] [address] [place] [address] Dr. Amita Leyva Urobilinogen Qn (U) 0.2 {Selina'U}/dL Normal 0.2 - 1.0 [facility] Comment on above: Performed By: #### E RUR, PREGU #### [facility] [address] [place] [address] Dr. Amita Leyva LIPASEon 10-31-2022 Lipase [Catalytic activity/Vol] 152.0 U/L Normal 73.0-393.0 [facility] Comment on above: Performed By: #### A MY, LIPA #### [facility] [address] [place] [address] Dr. Amita Leyva URon 10-31-2022 , QUAL Negative Normal NEGATIVE [facility] Comment on above: Performed By: #### E RUR, PREGU #### [facility] [address] [place] [address] Dr. Amita Leyva PROF 14(COMP METB)on 023 Albumin [Mass/Vol] 4.3 g/dL Normal 3.4-5.0 [facility] Comment on above: Performed By: #### C MP #### [facility] [address] [place] [address] Dr. Amita Leyva Albumin/Globulin [Mass ratio] 1.3 {ratio} Normal [facility] Comment on above: Performed By: #### C MP #### [facility] [address] [place] [address] Dr. Amita Leyva ALP [Catalytic activity/Vol] 69 U/L Normal 46-116 [facility] Comment on above: Performed By: #### C MP #### [facility] [address] [place] [address] Dr. Amita Leyva ALT [Catalytic activity/Vol] 18 U/L Normal 14-59 [facility] Comment on above: Performed By: #### C MP #### [facility] [address] [place] [address] Dr. Amita Leyva Anion gap [Moles/Vol] 13.5 mmol/L Normal [facility] Comment on above: Performed By: #### C MP #### [facility] [address] [place] [address] Dr. Amita Leyva AST [Catalytic activity/Vol] 21 U/L Normal 15-37 [facility] Comment on above: Performed By: #### C MP #### [facility] [address] [place] [address] Dr. Amita Leyva Bilirubin [Mass/Vol] 0.3 mg/dL Normal 0.2-1.0 [facility] Comment on above: Performed By: #### C MP #### [facility] [address] [place] [address] Dr. Amita Leyva Calcium [Mass/Vol] 9.2 mg/dL Normal 8.5-10.1 [facility] Comment on above: Performed By: #### C MP #### [facility] [address] [place] [address] Dr. Amita Leyva Chloride [Moles/Vol] 105 mmol/L Normal 98-107 [facility] Comment on above: Performed By: #### C MP #### [facility] [address] [address] [address] Amita Leyva CO2 [Moles/Vol] 26.6 mmol/L Normal 21.0-32.0 [facility] Comment on above: Performed By: #### C MP #### [facility] [address] [address] [address] Amita Leyva Creatinine [Mass/Vol] 0.76 mg/dL Normal 0.55-1.02 [facility] Comment on above: Performed By: #### C MP #### [facility] [address] [place] [address] Dr. Amita Leyva EGFR-AF CYPRIOT >60 Normal >=60 [facility] Comment on above: Performed By: #### C MP #### [facility] [address] [address] [address] Amita Leyva EGFR-NON AF CYPRIOT >60 Normal >=60 [facility] Comment on above: Performed By: #### C MP #### [facility] [address] [address] [address] Amita Leyva Globulin (S) [Mass/Vol] 3.2 g/dL Normal [facility] Comment on above: Performed By: #### C MP #### [facility] [address] [address] [address] Amita Leyva Glucose [Mass/Vol] 124 mg/dL Critically high 74-106 [facility] Comment on above: Performed By: #### C MP #### [facility] [address] [address] [address] Amita Leyva Potassium [Moles/Vol] 4.1 mmol/L Normal 3.5-5.1 [facility] Comment on above: Performed By: #### C MP #### [facility] [address] [address] [address] Amita Leyva Protein [Mass/Vol] 7.5 g/dL Normal 6.4-8.2 [facility] Comment on above: Performed By: #### C MP #### [facility] [address] [place], [place] [address] Dr. Amita Leyva Sodium [Moles/Vol] 141 mmol/L Normal 136-145 [facility] Comment on above: Performed By: #### C MP #### [facility] [address] [place], [place] [address] Dr. Amita Leyva Urea nitrogen [Mass/Vol] 16.0 mg/dL Normal 7.0-18.0 [facility] Comment on above: Performed By: #### C MP #### [facility] [address] [place], [place] [address] Dr. Amita Leyva Urea nitrogen/Creatinin e [Mass ratio] 21.1 mg/mg Normal [facility] Comment on above: Performed By: #### C MP #### [facility] [address] [address] [address] Amita Leyva US SINGLE QUAD RT [...] by: JEWELL MCQUEEN Date: 2022-10-31 13:17 Normal [facility] Registrationon 12-02-2021 Registration [id number]#1.00CD:1 27 [facility] [place] 11-28-2021 Consent [id number]#1.00CD:12 7 Normal [facility] Registrationon 11-28-2021 Registration [id number]#[id number]:12 7 [facility] CNPNon 02-22-2018 CNPN Telephone (GASTTW) Kourtney LUA ([id number]) 1975 FDate Time Provider Department02/22/18 DARRICK HUMPHRIES [...] symptoms: N/APerson calling: selfCall patient at: on [phone] (home) [phone] (cell)Was an appointment scheduled: NoClosing statement:Symptom Call: Thank you for calling [facility], your call is veryimportant. A nurse will call in approximately 2-4 hours during business hours.If this is an emergency, please contact 911.Mariano Freeman PsrPt advised to add Miralax to her regimen.Darrick Humphries MD, MPHLisette Mock (Ca) 02/22/2018 10:48 AM SignedPlease advise per message [...] is seen by Dr. Humphries. Please advise [phone], Kaitlin (Rn), RN 03/04/2018 3:52 PM SignedPlease [...] Status:Closed by DARRICK HUMPHRIES MD on 03/01/18 [facility] [place] 01-16-2018 [facility] Telephone (GASTTW) Kourtney LUA ([id number]) 1975 FDate Time Provider Department01/16/18 DARRICK HUMPHRIES During your visit today, we recorded the following information about you:Dada Yeager RN, RN 01/16/2018 10:20 AM SignedPA initiated for Trulance via Cover My Meds.Awaiting determination.Dada Yeager RNUniversity Hospitals [facility] 2017 10:20 AMDada Yeager RN, RN 01/17/2018 1:03 PM SignedPA for trulance approved via cover my meds.Approved on January 16CaseId:[id number],Status: ApprovedCoverage Start Date:12/17/2017;Coverage End Date:01/16/2019CaseId:[id number] notified.Dada Yeager RNUniversity Hospitals Conneaut Medical Center 2017 1:03 PMAllergies As of Date: 01/16/2018(No [...] Status:Closed by DADA YEAGER on 01/16/18 Normal [facility] CNCOon 01-15-2018 CNCO Letter Wilmer Lua:How to activate your [facility] [employer] Account 1. Visit the [employer] Signup page at [email or web address] 2. Identify yourself using your one-time use activation code: [email or web address] 3. Follow the on-screen prompts to choose your own secure username andpasswordThe following information will be necessary to access your account for thefirst time:Information needed for sign-up:Your custom activation code used one-time only for the initial accountset-up.Your date of birthThe last 4 digits of your social security numberWhat to do next:Fill in the requested information on the Identify Yourself Form [email or web address] , click Next.Create your login and password, choose a [employer] ID and password that will beeasy for you to use, but impossible for anyone else to guess.Pick a security question that will assist you in the event you forget yourpassword the next time you log-on.If you have difficulty activating your account, please call our [employer] at [phone] or toll free at .We hope you enjoy using [employer]!Kindest Regards,[facility] Team Normal [facility] CNOVon 01-15-2018 CNOV Office Visit (GASTTW) Kourtney LUA ([id number]) 1975 FDate Time Provider Department01/15/18 2:40 PM DARRICK HUMPHRIES During your visit today, we recorded the following information about you: Pulse Respiration Blood pressure Weight 64/minute 16/minute 143/88 84.4 kgBrebell Humphries MD, MPH 01/15/2018 2:52 PM SignedNAME: Leonela JaimengerAGE: 42 year oldReferred by: Cici Crenshaw MD ([facility])[address] [facility] [place] [address]Waalxlhn for: an opinion regarding constipation and my [...] NoThe above documentation completed by Dada Yeager RNUniversity Hospitals Conneaut Medical Center 2017 2:36 PM PRESENTING COMPLAINT ANDamp; HISTORY:No [...] daily.Darrick Humphries MD, MPHReferring Provider: CICI CRENSHAW [[id number]]Allergies As of Date: 01/15/2018(No Known Allergies)Date Reviewed: [...] ULTRACET 37.5 MG-325 MG TABLET >> Dada Yeager RN, RN [...] Status:Closed by DARRICK HUMPHRIES MD on 01/15/18 [facility] PROGRESSon 01-15-2018 PROGRESS HNO ID: [id number] thor: Darrick Hallmanervice: (none)Author Type: PhysicianType: Progress NotesFiled: 01/15/2018 2:52 PMNote Text:NAME: Leonela JaimengerAGE: 42 year oldReferred by: Cici Crenshaw MD ([facility])[address] [facility] [address]Angiddqd for: an opinion regarding constipation and my [...] Trulance 3mg daily.Darrick Humphries MD, MPH Normal [facility] Vital Signs Date Time Vital Sign Value Performing Clinician Facility 08-28-2023 13:30-0500 Body height 157.48 cm Lila Junior Other [facility] Other 08-28-2023 13:30-0500 Body mass index (BMI) [Ratio] 36.58 kg/m2 Lila Sandi Other [facility] Other 08-28-2023 13:30-0500 Body weight 90.72 kg Lila Sandi Other [facility] Other 08-28-2023 13:30-0500 Diastolic blood pressure 84 mm[Hg] Lila Junior Other [facility] Other 08-28-2023 13:30-0500 SaO2% (BldA) [Mass fraction] 98 % Lila Junior Other [facility] Other 08-28-2023 13:30-0500 Systolic blood pressure 124 mm[Hg] Lila Junior Other [facility] Other 08-14-2023 14:00-0400 Body height 157.48 cm Lila Junior Other [facility] Other 08-14-2023 14:00-0400 Body mass index (BMI) [Ratio] 36.03 kg/m2 Lila Vur Other [facility] Other 08-14-2023 14:00-0400 Body weight 89.36 kg Lila Madisonacher Other [facility] Other 08-14-2023 14:00-0400 Diastolic blood pressure 86 mm[Hg] Lila Madisonacher Other [facility] Other 08-14-2023 14:00-0400 SaO2% (BldA) [Mass fraction] 99 % Lila Madisonacher Other [facility] Other 08-14-2023 14:00-0400 Systolic blood pressure 140 mm[Hg] Lila Madisonacher Other [facility] Other 07-03-2023 14:00-0400 Body height 157.48 cm Lila Vur Other [facility] Other 07-03-2023 14:00-0400 Body mass index (BMI) [Ratio] 36.28 kg/m2 Lila Madisonacher Other [facility] Other 07-03-2023 14:00-0400 Body weight 89.99 kg Lila Madisonacher Other [facility] Other 07-03-2023 14:00-0400 Diastolic blood pressure 84 mm[Hg] Lila Madisonacher Other [facility] Other 07-03-2023 14:00-0400 SaO2% (BldA) [Mass fraction] 100 % Lila Adairchristophacher Other [facility] Other 07-03-2023 14:00-0400 Systolic blood pressure 136 mm[Hg] Lila Vur Other [facility] Other Encounters Encounter Date Encounter Type Care Provider Facility Start: 10-05-2023 End: 10-05-2023 ambulatory Lila Adairrogerior Other [email or web address] Other Start: 10-05-2023 Office outpatient visit 15 minutes Lila Sandi [facility] Start: 08-28-2023 End: 08-28-2023 ambulatory Lila Griceldaacher Other [email or web address] Other Start: 08-28-2023 Office outpatient visit 15 minutes Lila Sandi [facility] Start: 08-15-2023 End: 08-15-2023 ambulatory Lila Horacer Other [email or web address] Other Start: 08-15-2023 Telephone encounter Lila Adairpresley johnson [facility] Start: 08-14-2023 End: 08-14-2023 ambulatory Lila Sandi Other [email or web address] Other Start: 08-14-2023 Office outpatient visit 15 minutes Lila Sandi [facility] Start: 07-03-2023 End: 07-03-2023 ambulatory Lila Griceldaacher Other [email or web address] Other Start: 07-03-2023 Office outpatient visit 15 minutes Lila Griceldaachedawn [facility] Start: 10-31-2022 End: 10-31-2022 ambulatory JEREMIAH OSWALD Facility: Start: 02-22-2022 End: 02-22-2022 Patient encounter procedure Nathaniel Mandel [facility] Start: 01-15-2018 End: 01-16-2018 Ambulatory DARRICK HUMPHRIES [facility] Procedures Date Procedure Procedure Detail Performing Clinician Start: 03-03-2016 Left carpal tunnel release Nathaniel MARCUM Start: 02-18-2016 right carpal tunnel release Nathaniel MARCUM section Nathaniel MARCUM Comment on above: x2 H/O: hysterectomy Nathaniel Sánchez sweat glands clamped 2 Nathaniel MARCUM Comment on above: bilateral underarms Payers Date Payer Category Payer Unknown [id number] 1957 Unknown [id number] Medicaid [id number] Social History Date Type Detail Facility Tobacco smoking status [facility] Sex Assigned At Sex [facility] Sex Assigned At Sex Assigned At Bir th [email or web address] Other Evaluation note 10-05-2023 Note Date & [...] verbalizes understanding and agrees to treatment plan. [email or web address] Other Evaluation note 08-28-2023 Note Date & [...] tx plan. Pt ambulated out by self. [email or web address] Other Evaluation note 08-14-2023 Note Date & [...] Jul, Fall, initial encounter (ICD-10 - W19.XXXA) [email or web address] Other Evaluation note 07-03-2023 Note Date & [...] understanding and is agreeable to treatment plan. [email or web address] Other Evaluation + Plan note Note Date & Type Note Facility Evaluation + Plan note No data available for this section [facility] Evaluation note Note Date & Type Note Facility Evaluation note No Information [employer] Other History general Narrative - Reported Note [...] to the dye in a CT scan [email or web address] Other History general Narrative - Reported Note [...] to the dye in a CT scan [email or web address] Other Hospital Discharge instructions Note Date & Type Note Facility Hospital Discharge instructions No data available for this section [facility] Summary Purpose Family History No Family History Records FoundNo Family History Records FoundNo Family History Records Found Advance Directives No Advanced Directives Records FoundNo Advanced Directives Records FoundNo Advanced Directives Records Found Additional Source Comments INFORMATION SOURCE (unrecogn ized section and content) DATE CREATED AUTHOR 04/10/2018 [facility] DATE CREATED AUTHOR AUTHOR'S ORGANIZ ATION 02/24/2022 [facility] DATE CREATED AUTHOR AUTHOR'S ORGANIZ ATION 11/02/2022 [facility] REASON FOR VISIT (unrecogniz ed section and content) sinus infectionKnee, Ankle, [id number] resultsback pain, pulled musclesinus infection FOR RECORDS [...] BE BASED ON THE PRIMARY CLINICAL RECORDS. [employer] provides no warranty or guarantee of the accuracy or completeness of information in this document.
== END 2023-11-12 08:14 | disposition home or self-care (01) ==
LOC: CARD 08:13
PROVIDERS: PCP Family Medicine; Visit Provider Family Medicine
DX: R07.9 Chest pain, unspecified (principal)
CPT/HCPCS: 93005

== ENCOUNTER 2023-12-13 10:48 | Outpatient (OUT) | payer MEDICAID, SELFPAY ==
--- OUTSIDE RECORDS SUMMARY | 2023-12-13 10:53 | XMS_ITS | CCD ---
Author Name Unknown Address [facility] [address] [place] [address] Organization [facility] Care Team Providers Care Rose Grower Name Role Phone DARRICK HUMPHRIES Unavailable Unavailable CICI CRENSHAW Unavailable Unavailable CICI CRENSHAW Primary Care Physician JEREMIAH OSWALD Attending Unavailable DR JEWELL MCQUEEN Consulting Unavailable DR CICI CRENSHAW Primary Care Unavailable JEREMIAH OSWALD Admitting Unavailable JEREMIAH OSWALD Consulting Unavailable Lila Junior Unavailable Cici Crenshaw Unavailable Allergies Allergy Classification Reported Allergen(s) Allergy Type Date of Onset Reaction(s) Facility (4 sources) Desonide Drug Allergy 4 Comment:mitzy howard [facility] (10 sources) Adhesive agent Drug allergy 4 Unknown, ister [facility] (7 sources) Adhesive Tape Drug allergy Comment:mitzy howard [facility] Other (7 sources) CT scan dye Propensity to adverse reactions vomiting [facility] Other (7 sources) Dye HALFWAY Red 40 ([place] Red) *PHARMACEUTICAL ADJUV Propensity to adverse reactions 4 Unknown [facility] Other (3 sources) Contrast media Allergy to substance 4 Unknown Reaction [facility] (3 sources) Iodinated Contrast Media Allergy to substance 4 vomiting [facility] Medications Current Medications Medication Drug Class(es) Dates Sig (Normalized) Sig (Original) acetaminophen 325 mg / HYDROcodone bitartrate 5 mg oral tablet (2 sources) Opioid Agonist Start: 02-17-2016 Dowell 325 mg-5 mg oral tablet 2 tab(s), Oral, q4hr for pain, 40 tab(s), Refill(s) 0 Start Date: 03/01/16 Status: Ordered Albuterol (1 source) beta2-Adrenergic Agonist Start: 12-11-2023 take 1 puff(s) by inhalation every four to six hours Albuterol Sulfate Active 2 PUFF INHALATION EVERY 4-6 HOURS 6.7 December 11, 2023 12:00am amoxicillin 875 mg / clavulanate 125 mg oral tablet (1 source) Penicillin-class Antibacterial Start: 07-03-2023 take 1 tablet by mouth every twelve hours Amoxicillin-Pot Clavulanate 875-125 MG 1 tablet Orally every 12 hrs for 7 days Jun, Active Azithromycin (3 sources) Macrolide Antimicrobial Start: 12-11-2023 Azithromycin Active 0 PO .COMPLEX 6 December 11, 2023 12:00am For 250 mg dose pack: take 500 mg today (day 1), then 250 mg for 4 days (days 2-5) PO Start: 11-07-2023 Azithromycin 2 50 MG as directed Orally 2 tabs po today, then 1 tab daily x 4 more days for 5 Oct, Active busPIRone hydrochloride 15 mg oral tablet (6 sources) Start: 12-06-2023 take 15 mg by mouth twice daily Buspirone Active 15 MG PO Twice daily December 06, 2023 12:00am Start: 10-05-2023 take 1 tablet by maren th every twelve hours busPIRone HCl 5 MG 1 tablet Orally Twice a day for 30 days Sep, Active take 1 tablet by maren th every twelve hours busPIRone HCl 15 MG 1 tablet Orally Twice a day for 30 days Active cyclobenzaprine hydrochloride 10 mg oral tablet (7 sources) Muscle Relaxant Start: 12-06-2023 take 10 mg by mouth once daily at bedtime Cyclobenzaprine Active 10 MG PO Daily at bedtime December 06, 2023 12:00am Start: 08-28-2023 take 1 tablet by maren th every twenty-four hours Cyclobenzaprine HCl 10 MG 1 tablet at bedtime as needed Orally Once a day for 10 days Aug, Active meloxicam 15 mg oral tablet (5 sources) Nonsteroidal Anti-inflammatory Drug Start: 12-06-2023 take 15 mg by mouth once daily Meloxicam Active 15 MG PO Daily December 06, 2023 12:00am Meloxicam Active Methylprednisolone (4 sources) Corticosteroid Start: 12-07-2023 Methylpredniso lone Active 0 PO per package directions December 07, 2023 12:00am PO PER PKG DIR for 6 days Start: 08-28-2023 methylPREDNISo lone 4 MG as directed Orally daily for 6 days Aug, Active naproxen 500 mg oral tablet (1 source) Nonsteroidal Anti-inflammatory Drug Start: 02-14-2016 Naprosyn 500 mg Tab 500 mg = 1 tab(s), Oral, PRN as needed for pain, Refills(s) 0 Start Date: 02/14/16 Status: Ordered Nirmatrelvir-Chemo navir (Paxlovid) 300 mg (150 mg x 2)-100 mg tablets,dose pack (2 sources) Start: 12-07-2023 Nirmatrelvir-Chemo navir (Paxlovid) 300 mg (150 mg x 2)-100 mg tablets,dose pack Active 0 PO .COMPLEX December 07, 2023 12:00am take TWO 150 mg tablets of nirmatrelvir with ONE 100 mg tablet of ritonavir twice daily for 5 days PO OTC stool softner (1 source) Start: 02-14-2016 OTC stool softner OTC stool softner, one t ab, Oral, PRN constipation Start Date: 02/14/16 Status: Ordered SUMAtriptan 50 mg oral tablet (1 source) Serotonin-1b and Serotonin-1d Receptor Agonist Start: 02-14-2016 take 1 tablet by mouth once daily SUMAtriptan 50 mg Tab 50 mg = 1 tab(s), Oral, Daily, Refills(s) 0, Migraine headache Start Date: 02/14/16 Status: Ordered zolpidem tartrate 5 mg oral tablet (5 sources) gamma-Aminobutyric Acid-ergic Agonist Start: 12-06-2023 take 5 mg by mouth once daily at bedtime Zolpidem Active 5 MG PO Daily at bedtime December 06, 2023 12:00am Start: 11-09-2023 take 1 tablet by maren every twenty-four hours Zolpidem Tartrate 5 MG 1 tablet at bedtime as needed Orally Once a day for 30 days Oct, Active Completed/Discontinued Medications Medication Drug Class(es) Dates Sig (Normalized) Sig (Original) lubiprostone 0.024 mg oral capsule (1 source) Chloride Channel Activator Start: 02-14-2016 take 1 capsule by mouth twice daily Amitiza 24 mcg Cap 24 microgram = 1 cap(s), Oral, BID, # 60 cap(s), Refills(s) 0 Start Date: 02/14/16 Status: Ordered Toradol 30 mg/ml (4 sources) Start: 08-28-2023 Toradol 30 mg/ml Aug, 60 mg Problems Active Problems Problem Classification Problem Date Documented Da te Episodic/Chronic Abdominal pain (4 sources) Unspecified abdominal pain; Translations: [UNSPECIFIED ABDOMINAL PAIN] Onset: 10-31-2022 Episodic Anxiety disorders (7 sources) Anxiety; Translations: [Anxiety disorder, unspecified] Chronic Asthma (2 sources) Exacerbation of asthma; Translations: [Unspecified asthma with (acute) exacerbation] 12-11-2023 Chronic E Codes: Fall (1 source) Unspecified fall, initial encounter Episodic E Codes: Natural/environment (1 source) Exposure to other specified factors, initial encounter; Translations: [EXPOSURE OTHER SPEC FACTORS INITIAL] Onset: 11-02-2022 Episodic Genitourinary symptoms and ill-defined conditions (7 sources) Mixed incontinence; Translations: [Mixed urinary incontinence] Chronic Headache; including migraine (1 source) Migraine 02-14-2016 Chronic Miscellaneous mental health disorders (5 sources) Primary insomnia; Translations: [Primary insomnia] 12-06-2023 Chronic Mood disorders (1 source) Depression 02-15-2022 Chronic Nonmalignant breast conditions (7 sources) Nodule of skin of breast; Translations: [Unspecified lump in unspecified breast] Episodic Other connective tissue disease (1 source) Fibromyalgia 02-15-2022 Episodic Other connective tissue disease (1 source) Foot pain 02-14-2016 Episodic Other gastrointestinal disorders (6 sources) Irritable bowel syndrome; Translations: [Irritable bowel syndrome without diarrhea] 02-14-2016 Chronic Other gastrointestinal disorders (2 sources) Irritable bowel syndrome without diarrhea; Translations: [Irritable bowel syndrome] Chronic Other gastrointestinal disorders (7 sources) Irritable bowel syndrome characterized by constipation; Translations: [Irritable bowel syndrome with constipation] Chronic Other gastrointestinal disorders (1 source) Other constipation; Translations: [Other constipation] Onset: 02-15-2022 Episodic Other gastrointestinal disorders (1 source) Chronic constipation 02-15-2022 Episodic Other gastrointestinal disorders (7 sources) Constipation; Translations: [Constipation, unspecified] Episodic Other lower respiratory disease (2 sources) Viral respiratory infection; Translations: [Other specified respiratory disorders] 12-07-2023 Episodic Other lower respiratory disease (2 sources) Other specified respiratory disorders; Translations: [Unspecified viral infection] 12-06-2023 Episodic Other non-traumatic joint disorders (1 source) Pain in left knee; Translations: [Acute pain of left knee] Episodic Other non-traumatic joint disorders (3 sources) Pain in right knee; Translations: [Acute pain of right knee] Episodic Other non-traumatic joint disorders (11 sources) Arthralgia of the lower leg; Translations: [Pain in left knee] Episodic Other nutritional; endocrine; and metabolic disorders (7 sources) Body mass index 30+ - obesity; Translations: [Body mass index (BMI) 32.0-32.9, adult] Chronic Other skin disorders (1 source) Hyperhidrosis 02-18-2016 Episodic Other upper respiratory infections (3 sources) Acute maxillary sinusitis, unspecified; Translations: [Acute maxillary sinusitis] Episodic Spondylosis; intervertebral disc disorders; other back problems (7 sources) Muscle spasm of back; Translations: [Low back pain] Onset: 11-02-2022 Episodic Sprains and strains (1 source) Strain of muscle, fascia and tendon of lower back, initial encounter; Translations: [STRAIN MUSC FASC TENDON LW BACK INT] Onset: 11-02-2022 Episodic Unclassified (2 sources) Low back pain, unspecified; Translations: [Low back pain, unspecified] Viral infection (5 sources) Disease caused by nCoV; Translations: [COVID-19] 12-07-2023 Episodic Past or Other Problems Problem Classification Problem Date Documented Da te Episodic/Chronic Suicide and intentional self-inflicted injury (2 sources) Suicidal thoughts; Translations: [Suicide attempt ] Onset: 10-22-1994 02-15-2022 Episodic Viral infection (7 sources) Disease caused by 2019-nCoV; Translations: [COVID-19] Results Test Name Value Interpretation Reference Range Facility AMYLASEon 10-31-2022 Amylase [Catalytic activity/Vol] 82 U/L Normal 25-115 [facility] Comment on above: Performed By: #### A MY, LIPA #### [facility] [address] [place] [address] Dr. Amita Leyva CBC AUTO DIFFon 10-31-2022 BASO # 0.0 103/ul Normal 0.0-0.1 [facility] Comment on above: Performed By: #### C BC #### [facility] [address] [place] [address] Dr. Amita Leyva Basophils/100 WBC (Bld) 0.5 % Normal 0.2-2.0 [facility] Comment on above: Performed By: #### C BC #### [facility] [address] [place] [address] Dr. Amita Leyva EO # 0.2 103/ul Normal 0.0-0.7 [facility] Comment on above: Performed By: #### C BC #### [facility] [address] [place] [address] Dr. Amita Leyva Eosinophils/100 WBC (Bld) 2.7 % Normal 0.9-7.0 [facility] Comment on above: Performed By: #### C BC #### [facility] [address] [place] [address] Dr. Amita Leyva Erythrocyte distribution width (RBC) [Ratio] 12.4 % Normal 11.0-15.0 [facility] Comment on above: Performed By: #### C BC #### [facility] [address] [place] [address] Dr. Amita Leyva Hematocrit (Bld) [Volume fraction] 40.8 % Normal 36.0-48.0 [facility] Comment on above: Performed By: #### C BC #### [facility] [address] [place] [address] Dr. Amita Leyva Hemoglobin (Bld) [Mass/Vol] 14.1 g/dL Normal 12.0-16.0 [facility] Comment on above: Performed By: #### C BC #### [facility] [address] [place] [address] Dr. Amita Leyva IG # 0.02 10e3/ul Normal 0.00-0.03 [facility] Comment on above: Performed By: #### C BC #### [facility] [address] [place] [address] Dr. Amita Leyva IG % 0.4 % Normal 0.0-0.5 [facility] Comment on above: Performed By: #### C BC #### [facility] [address] [place] [address] Dr. Amita Leyva LYMPH # 1.9 103/ul Normal 1.2-3.8 [facility] Comment on above: Performed By: #### C BC #### [facility] [address] [place] [address] Dr. Amita Leyva Lymphocytes/100 WBC (Bld) 33.3 % Normal 20.5-60.0 [facility] Comment on above: Performed By: #### C BC #### [facility] [address] [place] [address] Dr. Amita Leyva MANUAL DIFF REQ NO Normal [facility] Comment on above: Performed By: #### C BC #### [facility] [address] [place] [address] Dr. Amita Leyva MCH (RBC) [Entitic mass] 30.4 pg Normal 26.7-34.0 [facility] Comment on above: Performed By: #### C BC #### [facility] [address] [place] [address] Dr. Amita Levya MCHC (RBC) [Mass/Vol] 34.6 g/dL Normal 29.9-35.2 [facility] Comment on above: Performed By: #### C BC #### [facility] [address] [place] [address] Dr. Amita Leyva MCV (RBC) [Entitic vol] 87.9 fL Normal 81.0-99.0 [facility] Comment on above: Performed By: #### C BC #### [facility] [address] [place] [address] Dr. Amita Leyva MONO # 0.4 103/ul Normal 0.3-0.8 [facility] Comment on above: Performed By: #### C BC #### [facility] [address] [place] [address] Dr. Amita Leyva Monocytes/100 WBC (Bld) 7.7 % Normal 1.7-12.0 [facility] Comment on above: Performed By: #### C BC #### [facility] [address] [place] [address] Dr. Amita Leyva NEUT # 3.1 103/ul Normal 1.4-6.5 [facility] Comment on above: Performed By: #### C BC #### [facility] [address] [place] [address] Dr. Amita Leyva Neutrophils/100 WBC (Bld) 55.4 % Normal 43.0-75.0 [facility] Comment on above: Performed By: #### C BC #### [facility] [address] [place] [address] Dr. Amita Leyva Platelet mean volume (Bld) [Entitic vol] 9.9 fL Normal 9.5-13.5 [facility] Comment on above: Performed By: #### C BC #### [facility] [address] [place] [address] Dr. Amita Leyva PLT 313 103/ul Normal 150-450 [facility] Comment on above: Performed By: #### C BC #### [facility] [address] [place] [address] Dr. Amita Leyva RBC 4.64 106/ul Normal 4.20-5.40 [facility] Comment on above: Performed By: #### C BC #### [facility] [address] [place] [address] Dr. Amita Leyva WBC 5.6 103/ul Normal 4.0-11.0 [facility] Comment on above: Performed By: #### C BC #### [facility] [address] [place] [address] ABD/PELVIS GUILHERME Latif 10-31 CT ABD/PELVIS WO CON EXAMINATION: CT [...] JEWELL MCQUEEN Date: 2022-10-31 11:31 Normal [facility] ER URINE PROFILEon 3 Bilirubin Ql (U) Negative Normal NEGATIVE [facility] Comment on above: Performed By: #### E KARENR PREGU #### [facility] [address] [address] [address] Amita Leyva Clarity (U) CLEAR Normal CLEAR [facility] Comment on above: Performed By: #### E RUR, PREGU #### [facility] [address] [place], [place] [address] Dr. Amita Leyva Color (U) LT. YELLOW Normal YELLOW [facility] Comment on above: Performed By: #### E RUR, PREGU #### [facility] [address] [address] [address] Amita TINOCO A micrscopic examina tion will be performed if indicated. Normal [facility] Comment on above: Performed By: #### E RUR, PREGU #### [facility] [address] [address] [address] Amita Leyva Glucose Ql (U) Negative Normal NEGATIVE [facility] Comment on above: Performed By: #### E RUR, PREGU #### [facility] [address] [address] [address] Amita Leyva Hemoglobin Ql (U) Negative Normal NEGATIVE [facility] Comment on above: Performed By: #### E RUR, PREGU #### [facility] [address] [place] [address] Dr. Amita Leyva Ketones Ql (U) Negative Normal NEGATIVE [facility] Comment on above: Performed By: #### E RUR, PREGU #### [facility] [address] [place] [address] Dr. Amita Leyva LEUKOCYTES Negative Normal NEGATIVE [facility] Comment on above: Performed By: #### E RUR, PREGU #### [facility] [address] [place] [address] Dr. Amita Leyva Nitrite Ql (U) Negative Normal NEGATIVE [facility] Comment on above: Performed By: #### E RUR, PREGU #### [facility] [address] [place] [address] Dr. Amita Leyva pH (U) 6.0 [pH] Normal 5-9 [facility] Comment on above: Performed By: #### E RUR, PREGU #### [facility] [address] [address] [address] Amita Leyva SPEC GRAVITY >=1.030 Abnormal 1.005-<=1.025 [facility] Comment on above: Performed By: #### E RUR, PREGU #### [facility] [address] [place] [address] Dr. Amita Leyva UA PROTEIN Negative Normal NEGATIVE/ TRACE [facility] Comment on above: Performed By: #### E RUR, PREGU #### [facility] [address] [place] [address] Dr. Amita Leyva UR MICRO IND NOT INDICATED Normal [facility] Comment on above: Performed By: #### E RUR, PREGU #### [facility] [address] [place] [address] Dr. Amita Leyva Urobilinogen Qn (U) 0.2 {Selina'U}/dL Normal 0.2 - 1.0 [facility] Comment on above: Performed By: #### E RUR, PREGU #### [facility] [address] [place] [address] Dr. Amita Leyva LIPASEon 10-31-2022 Lipase [Catalytic activity/Vol] 152.0 U/L Normal 73.0-393.0 [facility] Comment on above: Performed By: #### A MY, LIPA #### [facility] [address] [place] [address] Dr. Amita Leyva URon 10-31-2022 , QUAL Negative Normal NEGATIVE [facility] Comment on above: Performed By: #### E RUR, PREGU #### [facility] [address] [place] [address] Dr. Amita Leyva PROF 14(COMP METB)on 023 Albumin [Mass/Vol] 4.3 g/dL Normal 3.4-5.0 [facility] Comment on above: Performed By: #### C MP #### [facility] [address] [place] [address] Dr. Amita Leyva Albumin/Globulin [Mass ratio] 1.3 {ratio} Normal [facility] Comment on above: Performed By: #### C MP #### [facility] [address] [place] [address] Dr. Amita Leyva ALP [Catalytic activity/Vol] 69 U/L Normal 46-116 [facility] Comment on above: Performed By: #### C MP #### [facility] [address] [place] [address] Dr. Amita Leyva ALT [Catalytic activity/Vol] 18 U/L Normal 14-59 [facility] Comment on above: Performed By: #### C MP #### [facility] [address] [place] [address] Dr. Amita Leyva Anion gap [Moles/Vol] 13.5 mmol/L Normal [facility] Comment on above: Performed By: #### C MP #### [facility] [address] [address] [address] Amita Leyva AST [Catalytic activity/Vol] 21 U/L Normal 15-37 [facility] Comment on above: Performed By: #### C MP #### [facility] [address] [place] [address] Dr. Amita Leyva Bilirubin [Mass/Vol] 0.3 mg/dL Normal 0.2-1.0 [facility] Comment on above: Performed By: #### C MP #### [facility] [address] [place] [address] Dr. Amita Leyva Calcium [Mass/Vol] 9.2 mg/dL Normal 8.5-10.1 [facility] Comment on above: Performed By: #### C MP #### [facility] [address] [place] [address] Dr. Amita Leyva Chloride [Moles/Vol] 105 mmol/L Normal 98-107 [facility] Comment on above: Performed By: #### C MP #### [facility] [address] [place] [address] Dr. Amita Leyva CO2 [Moles/Vol] 26.6 mmol/L Normal 21.0-32.0 [facility] Comment on above: Performed By: #### C MP #### [facility] [address] [place] [address] Dr. Amita Leyva Creatinine [Mass/Vol] 0.76 mg/dL Normal 0.55-1.02 [facility] Comment on above: Performed By: #### C MP #### [facility] [address] [place] [address] Dr. Amita Leyva EGFR-AF MEXICAN >60 Normal >=60 [facility] Comment on above: Performed By: #### C MP #### [facility] [address] [address] [address] Amita Leyva EGFR-NON AF MEXICAN >60 Normal >=60 [facility] Comment on above: Performed By: #### C MP #### [facility] [address] [address] [address] Amita Leyva Globulin (S) [Mass/Vol] 3.2 g/dL Normal [facility] Comment on above: Performed By: #### C MP #### [facility] [address] [address] [address] Amita Leyva Glucose [Mass/Vol] 124 mg/dL Critically high 74-106 [facility] Comment on above: Performed By: #### C MP #### [facility] [address] [place] [address] Dr. Amita Leyva Potassium [Moles/Vol] 4.1 mmol/L Normal 3.5-5.1 [facility] Comment on above: Performed By: #### C MP #### [facility] [address] [address] [address] Amita Leyva Protein [Mass/Vol] 7.5 g/dL Normal 6.4-8.2 [facility] Comment on above: Performed By: #### C MP #### [facility] [address] [address] [address] Amita Leyva Sodium [Moles/Vol] 141 mmol/L Normal 136-145 [facility] Comment on above: Performed By: #### C MP #### [facility] [address] [address] [address] Amita Leyva Urea nitrogen [Mass/Vol] 16.0 mg/dL Normal 7.0-18.0 [facility] Comment on above: Performed By: #### C MP #### [facility] [address] [address] [address] Amita Leyva Urea nitrogen/Creatinin e [Mass ratio] 21.1 mg/mg Normal [facility] Comment on above: Performed By: #### C MP #### [facility] [address] [address] [address] Amita Leyva US SINGLE QUAD RT [...] by: JEWELL MCQUEEN Date: 2022-10-31 13:17 Normal [facility] Registrationon 12-02-2021 Registration [id number]:1 27 Normal [facility] Consenton 11-28-2021 Consent [id number]#[id number]:12 7 Normal [facility] Registrationon 11-28-2021 Registration [id number]#[id number]:12 7 [facility] CNPNatalie 02-22-2018 CNPN Telephone (GASTTW) Kourtney LUA ([id number]) 1975 FDate Time Provider Department02/22/18 DARRICK HUMPHRIES GASTTW During your visit today, we recorded the following information about you:Freeman PinonWilmerMariano 02/22/2018 10:36 AM AddendumDanyellkassie Griffin Addisoncristina is calling Darrick Humphries today with concern [...] symptoms: N/APerson calling: selfCall patient at: on [phone] (home) [phone] (cell)Was an appointment scheduled: NoClosing statement:Symptom Call: Thank you for calling [facility], your call is veryimportant. A nurse will call in approximately 2-4 hours during business hours.If this is an emergency, please contact 911.Mariano Millard PsrPt advised to add Miralax to her regimen.Darrick Humphries MD, MPHLisette Mock (Ms) 02/22/2018 10:48 AM SignedPlease advise per message below. ThanksSusy PANDEY 2017 10:47 AMMargie Hart 03/04/2018 3:46 PM SignedPatient is calling in regards to message below. Patient is suppose to havesurgery and the general surgeon will not do surgery on her until the IBS isunder control. Patient would like to know if she can get a letter written to beoff work til she is seen by Dr. Humphries. Please advise [phone], Kaitlin (Matias), RN 03/04/2018 3:52 PM SignedPlease see pt message and advise.Thank you.Dada Yeager RNMacorbin 2017 3:52 PMAllergies As of Date: 02/22/2018(No Known Allergies)Date Reviewed: 01/15/2018Reviewed by: Dada Yeager (Rn), RN - Fully AssessedReason for Visit: IBS [...] Status:Closed by DARRICK HUMPHRIES MD on 03/01/18 [facility] Tele[facility] (GASTTW) Kourtney LUA ([id number]) 1975 [facility] Time Provider Department01/16/18 DARRICK HUMPHRIES GASTTW During your visit today, we recorded the following information about you:Dada Yeager RN, RN 01/16/2018 10:20 AM SignedPA initiated for Trulance via Cover My Meds.Awaiting determination.Dada Yeager [facility]NSum[facility] 2017 10:20 AMDada Yeager RN, RN 01/17/2018 1:03 PM SignedPA for trulance approved via cover my meds.Approved on January 16CaseId:[id number],Status: ApprovedCoverage Start Date:12/17/2017;Coverage End Date:01/16/2019CaseId:[id number] notified.Dada Yeager [facility]NSum[facility] 1:03 PMAllergies As of [...] Status:Closed by DADA YEAGER on 01/16/18 [facility] CNCOon 01-15-2018 CNCO Letter Rosa MDetalita Lua:How to activate your [facility] Clarabridge Account 1. Visit the Clarabridge Signup page at [email or web address] 2. Identify yourself using your one-time use activation code: [email or web address] 3. Follow the on-screen prompts to choose your own secure username andpasswordThe following information will be necessary to access your account for thefirst time:Information needed for sign-up:Your custom activation code used one-time only for the initial accountset-up.Your date of birthThe last 4 digits of your social security numberWhat to do next:Fill in the requested information on the Identify Yourself Form [email or web address] , click Next.Create your login and password, choose a Clarabridge ID and password that will beeasy for you to use, but impossible for anyone else to guess.Pick a security question that will assist you in the event you forget yourpassword the next time you log-on.If you have difficulty activating your account, please call our [employer] Mobile at [phone] or toll free at .We hope you enjoy using Clarabridge!Kindest Regards,[facility] MyChart Team [facility] CNOVon 01-15-2018 CNOV Office Visit (GASTTW) Kourtney LUA ([id number]) 1975 [facility] Time Provider Department01/15/18 2:40 PM DARRICK HUMPHRIES During your visit today, we recorded the following information about you: Pulse Respiration Blood pressure Weight 64/minute 16/minute 143/88 84.4 kgDarrick Humphries MD, MPH 01/15/2018 2:52 PM SignedNAME: Leonela PatelerAGE: 42 year oldReferred by: Cici Crenshaw MD ([facility])[address] [facility] [facility] [address]Mqdvjked for: an opinion regarding constipation and my [...] Chalo Brown 2017 2:36 PM PRESENTING COMPLAINT ANDamp; HISTORY:No chief complaint on file.History: 42 Yo with IBS-C - Linzess 145mcg gave her diarrhea., no on 72 [...] daily.Darrick Humphries MD, MPHReferring Provider: CICI CRENSHAW [[id number]]Allergies As of Date: 01/15/2018(No Known Allergies)Date Reviewed: [...] 10 MG TABLET >> Dada Yeager RN, RN 01/15/2018 2:29 PM >> DADA YEAGER Jan 15, 2018 2:29 PM Not taking TYLENOL PM 25 MG-500 MG TABLET >> Dada Yeager RN, RN 01/15/2018 2:28 PM >> DADA YEAGER Jan 15, 2018 2:28 PM Not taking DULCOLAX (BISACODYL) 5 MG TABLET,DELAYED RELEASE >> Dada Yeager RN, RN 01/15/2018 2:28 PM >> DADA YEAGER Jan 15, 2018 2:28 PM Not takingProblem List As Of Date: 01/15/2018(None)Prescript ions ordered this encounter Disp Refills Start End PLECANATIDE 3 MG TABLET 100 * 5 01/15/2018 Class: Print RX Route: ORAL Sig: Take 1 tablet by mouth once daily. Status:Closed by DARRICK HUMPHRIES MD on 01/15/18 [facility] PROGRESSon 01-15-2018 PROGRESS HNO ID: [id number] thor: Darrick Hallmanervice: (none)Author Type: PhysicianType: Progress NotesFiled: 01/15/2018 2:52 PMNote Text:NAME: Leonela Griffin Malu: 42 year oldReferred by: Cici Crenshaw MD ([facility])[address] [place] [address]Eqnyrdtn for: an opinion regarding constipation and my [...] few drinks/yearCoffee: NoThe above documentation completed by Dadanoemi Yeager RNMarch 2017 2:36 PM PRESENTING COMPLAINT AND HISTORY:No chief complaint on file.History: 42 Yo with IBS-C - Jerrys 145mcg gave her diarrhea., no on 72mcg [...] Trulance 3mg daily.Darrick Humphries MD, MPH [facility] Vital Signs Date Time Vital Sign Value Performing Clinician Facility 11-09-2023 10:15-0500 Body height 157.48 cm [facility] 11-09-2023 10:15-0500 Body weight 89.81 kg [facility] 11-09-2023 10:15-0500 Diastolic blood pressure 76 mm[Hg] [facility] 11-09-2023 10:15-0500 Systolic blood pressure 159 mm[Hg] [facility] 08-28-2023 13:30-0500 Body height 157.48 cm Lila Adairchristophjose danieldawn Other [facility] 08-28-2023 13:30-0500 Body mass index (BMI) [Ratio] 36.58 kg/m2 Lila Griceldaacher Other [facility] 08-28-2023 13:30-0500 Body weight 90.72 kg Lila Vur Other [facility] Other 08-28-2023 13:30-0500 Diastolic blood pressure 84 mm[Hg] Lila Adairrogreior Other [facility] Other 08-28-2023 13:30-0500 SaO2% (BldA) [Mass fraction] 98 % Lila Sandi Other [facility] 08-28-2023 13:30-0500 Systolic blood pressure 124 mm[Hg] Lila Adairchristophjose danielr Other [facility] Other 08-14-2023 14:00-0400 Body height 157.48 cm Lila Sandi Other [facility] Other 08-14-2023 14:00-0400 Body mass index (BMI) [Ratio] 36.03 kg/m2 Lila Griceldaacher Other [facility] Other 08-14-2023 14:00-0400 Body weight 89.36 kg Lila Horacer Other [facility] Other 08-14-2023 14:00-0400 Diastolic blood pressure 86 mm[Hg] Lila Sandi Other [facility] Other 08-14-2023 14:00-0400 SaO2% (BldA) [Mass fraction] 99 % Lila Sandi Other [facility] Other 08-14-2023 14:00-0400 Systolic blood pressure 140 mm[Hg] Lila Sandi Other [facility] Other 07-03-2023 14:00-0400 Body height 157.48 cm Lila Sandi Other [facility] Other 07-03-2023 14:00-0400 Body mass index (BMI) [Ratio] 36.28 kg/m2 Lila Sandi Other [facility] Other 07-03-2023 14:00-0400 Body weight 89.99 kg Lila Adairdiego Other [facility] Other 07-03-2023 14:00-0400 Diastolic blood pressure 84 mm[Hg] Lila Junior Other [facility] Other 07-03-2023 14:00-0400 SaO2% (BldA) [Mass fraction] 100 % Lila Junior Other [facility] Other 07-03-2023 14:00-0400 Systolic blood pressure 136 mm[Hg] Lila Sandi Other [facility] Other Encounters Encounter Date Encounter Type Care Provider Facility Start: 12-11-2023 End: 12-11-2023 ambulatory [facility] Work Phone: Start: 12-11-2023 End: 12-11-2023 Patient encounter procedure [facility] Work Phone: Start: 12-07-2023 End: 12-07-2023 ambulatory [facility] Work Phone: Start: 12-07-2023 End: 12-07-2023 Patient encounter procedure [facility] Work Phone: Start: 12-06-2023 End: 12-06-2023 ambulatory [facility] Work Phone: Start: 12-06-2023 End: 12-06-2023 Patient encounter procedure [facility] Work Phone: Start: 11-13-2023 End: 11-13-2023 ambulatory Cici Crenshaw Other [facility] Other Start: 11-13-2023 Telephone encounter Cici Crenshaw [facility] Start: 11-12-2023 End: 11-12-2023 ambulatory Cici Crenshaw Other [facility] Other Start: 11-12-2023 Telephone encounter Cici Crenshaw [facility] Start: 11-09-2023 End: 11-09-2023 Patient encounter procedure [facility]- Start: 10-07-2023 Patient encounter procedure [facility]- Start: 10-05-2023 End: 10-05-2023 ambulatory Lila Junior Other [facility] Other Start: 10-05-2023 Office outpatient visit 15 minutes Lila Junior [facility] Start: 08-28-2023 End: 08-28-2023 ambulatory Lila Junior Other [facility] Other Start: 08-28-2023 Office outpatient visit 15 minutes Lila Junior [facility] Start: 08-15-2023 End: 08-15-2023 ambulatory Lila Junior Other [facility] Other Start: 08-15-2023 Telephone encounter Lila johnson [facility] Start: 08-14-2023 End: 08-14-2023 ambulatory Lila Madisonjose danieldawn Other [facility] Other Start: 08-14-2023 Office outpatient visit 15 minutes Lila Junior [facility] Start: 07-03-2023 End: 07-03-2023 ambulatory Lila Junior Other [facility] Other Start: 07-03-2023 Office outpatient visit 15 minutes Lila Junior [facility] Start: 10-31-2022 End: 10-31-2022 ambulatory JEREMIAH OSWALD Facility: Start: 02-22-2022 End: 02-22-2022 Patient encounter procedure Nathaniel MARCUM [facility] Start: 01-15-2018 End: 01-16-2018 Ambulatory DARRICK HUMPHRIES [facility] Procedures Date Procedure Procedure Detail Performing Clinician Start: 03-03-2016 Left carpal tunnel release Armstrong SALAM Start: 02-18-2016 right carpal tunnel release Armstrong SALAM section Armstrong SALAM Comment on above: x2 H/O: hysterectomy Armstrong KYREE M sweat glands clamped 2 Armstrong SALAM Comment on above: bilateral underarms Payers Date Payer Category Payer Unknown [id number] 1957 Unknown [id number] Medicaid [id number] Private Health Insurance [employer] [id number] Social History Date Type Detail Facility Tobacco smoking status [facility] Sex Assigned At Sex [facility] Sex Assigned At Sex Assigned At Bir th [facility] Other Start: 12-06-2023 Tobacco smoking status NHIS Never smoked tobacco (finding) [facility] Start: 1975 Sex Assigned At Female F [facility] Clinical Notes 07-03-2023 to 10-05-2023 Note Date & Type Note Facility [...] verbalizes understanding and agrees to treatment plan. [facility] Other 11-07-2023 Evaluation note* Encounter Date Diagnosis Assessment Notes Treatment Notes Treatment Clinical Notes Aug, Mid back pain on right [...] tx plan. Pt ambulated out by self. [facility] Other 10-24-2023 Evaluation note* Encounter Date Diagnosis Assessment Notes Treatment Notes Treatment Clinical Notes Jul, Acute pain of right knee (ICD-10 - M25.561) Will obtain an x-ray for evaluation due to fall. RICE therapy. otc ibuprofen/tylenol prn for pain. ice/warm compresses as directed. immediate eval if warning symptoms of neurovascular compromise. otherwise follow up if new/worsening symptoms. Will call with resutls of x-ray when available. pt verbalizes understanding and agrees c tx plan. Jul, Fall, initial encounter (ICD-10 - W19.XXXA) [facility] Other 09-12-2023 Evaluation note* Encounter Date Diagnosis Assessment Notes Treatment Notes Treatment Clinical Notes Jun, Acute non-recurrent maxillary sinusitis (ICD-10 - J01.00) Will tx [...] understanding and is agreeable to treatment plan. [facility] Other Evaluation + Plan note No data available for this section [facility] Evaluation noteNo [place] Other Evaluation noteNo assessment information available [facility] Work Phone: Evaluation note* Diagnosis Onset Date Resolution Status Viral respiratory illness ac holden COVID-19 acute [facility] Work Phone: Evaluation note* Diagnosis Onset Date Resolution Status Viral respiratory illness ac holden COVID-19 acute Asthma exacerbation acute COVID-19 acute Sinusitis, acute maxillary a cute [facility] Work Phone: History general Narrative - Reported* Type Description Date Medical History Constipation Medical History BMI 32.0-32.9,adult Medical History Irritable bowel syndrome Medical History Irritable bowel syndrome with co nstipation Medical History Breast nodule Medical History Mixed incontinence Medical History COVID Medical History Acute pain of right knee Medical History Acute pain of left knee Surgical History 2 c sections Surgical History hysterectomy Surgical History tonsilectomy Surgical History sweat glands clamped Hospitalization History alergic reaction to the dye in a CT scan [facility] Narrative - Reported* Type Description Date Medical History Constipation Medical History BMI 32.0-32.9,adult Medical History Irritable bowel syndrome Medical History Irritable bowel syndrome with co nstipation Medical History Breast nodule Medical History Mixed incontinence Medical History COVID Medical History Acute pain of right knee Medical History Acute pain of left knee Surgical History 2 c sections Surgical History hysterectomy Surgical History tonsilectomy Surgical History sweat glands clamped Surgical History Bladder lift 11/2018 Hospitalization History alergic reaction to the dye in a CT scan [facility] Other Hospital Discharge instructions No data available for this section [facility] Summary Purpose Family History Relationship Condition Age at Onset Recorded Date/T yahaira Not Specified Unknown Neoplasm of brain Unknown Advance Directives Advance Directive Response Recorded Date/ Time Advance Directives No November 10:21am Chief Complaint and Reason for Visit Chief Complaint Personal Reasons [phone] Chief Complaint Personal Reasons [phone] COVID+ Reason for Visit Viral respiratory il lness COVID-19 Chief Complaint Personal Reasons [phone] COVID+ asthma flare up - discussion on return to work Reason for Visit Viral respiratory il lness COVID-19 Asthma exacerbation COVID-19 Sinusitis, acute maxillary Additional Source Comments INFORMATION SOURCE (unrecogn ized section and content) DATE CREATED AUTHOR 04/10/2018 [facility] DATE CREATED AUTHOR AUTHOR'S ORGANIZ ATION 02/24/2022 [facility] DATE CREATED AUTHOR AUTHOR'S ORGANIZ ATION 11/02/2022 [facility] REASON FOR VISIT (unrecogniz ed section and content) sinus infectionKnee, Ankle, Rljmh-AbixH-wah resultsback pain, pulled musclesinus infectionEKG ResultWork Note? Care Teams (unrecognized sec tion and content) Team Status: Active Member Role Status Dates Cici Crenshaw MD Primary Care Provider Active Team Status: Active Member Role Status Dates Provider Conversion Attending Provider Active St art: October 07, 2023 Team Status: Inactive Member Role Status Dates Cici Crenshaw MD Attending Provider Active St art: November 09, 2023 End: November 09, 2023 Team Status: Inactive Member Role Status Dates Cici Crenshaw MD Primary Care Provider Active Start: December 06, 2023 End: December 06, 2023 Lila Junior APRN MANAGING CONSULTANT CLINICAL PROFESSOR-C Attending Provider Active Start: November End: December 06, 2023 Team Status: Inactive Member Role Status Dates Cici Crenshaw MD Primary Care Provide r, Attending Provider Active Start: December 07, 2023 End: December 07, 2023 Team Status: Inactive Member Role Status Dates Cici Crenshaw MD Primary Care Provide r, Attending Provider Active Start: December 11, 2023 End: December 11, 2023 Goals (unrecognized section and content) Goals may be documented in a n alternate section FOR RECORDS PERTAINING TO PATIENTS WHO ARE [...] BE BASED ON THE PRIMARY CLINICAL RECORDS. [facility]. provides no warranty or guarantee of the accuracy or completeness of information in this document.
--- NOTE | 2023-12-13 11:03 | XR_ITS ---
The [address] [address] Patient Name: RAJESH KOROMA MRN: [id number] date: 1975 Sex: F Assigned Patient Location: [facility] Current Patient Location: [facility] Accession/Order Number: [id number] Exam Date: 12/13/2023 10:56 Report Date: 12/13/2023 11:13 At the request of: ERIS CRENSHAW Procedure: XR chest 2V PROCEDURE: XR chest 2V DATE: 12/13/2023 10:56 AM EST COMPARISONS: 07/04/2017 CLINICAL INDICATION: 48 years Female Viral Respiratory Infection FINDINGS: The cardiomediastinal silhouette and pulmonary vasculature are within normal limits. The lungs are clear. There is no evidence of pleural effusion or pneumothorax. XR/XR chest 2V IMPRESSION: Chest radiograph is within normal limits. Electronically authenticated by: CHIDI YEN Date: 12/13/2023 11:13
== END 2023-12-13 10:49 | disposition home or self-care (01) ==
LOC: RAD 10:51
PROVIDERS: PCP Family Medicine; Visit Provider Family Medicine
DX: J98.8 Other specified respiratory disorders (principal); B97.89 Other viral agents as the cause of diseases classified elsewhere
CPT/HCPCS: 71046

== ENCOUNTER 2024-01-16 11:33 | Emergency (ER) | payer MEDICAID, SELFPAY ==
[2024-01-16] VITALS (12 sets, daily range): BP systolic 136; BP diastolic 92; PULSE 87; RESP 18; TEMP 36.9; O2SAT 98–100; BMI 33.5
--- NOTE | 2024-01-16 12:07 | ED.URI1 ---
HPI - URI/Sore Throat General Chief Complaint: Upper Respiratory Infection Stated Complaint: SOB, COUGH Time Seen by Provider: 01/16/24 12:07 Source: patient History of Present Illness HPI Narrative: Patient here with cough and congestion and sputum production. She was sent here by her primary care doctor office. She did test COVID-negative and influenza negative last weekend when she for started getting her symptoms. She says everybody at her place of employment was sick with vomiting diarrhea and cough. She is a non-smoker. Her pulse oximetry is normal at 99%. She is not on any antibiotics. She saw her doctor and was given prescriptions but she has not started them yet. Related Data Allergies Allergy/AdvReac Type Severity Reaction Status Date / Time No Known Drug Allergies Allergy Verified 01/16/24 11:41 Exam Narrative Exam Narrative: Patient is awake alert vital signs are noted. Her skin is warm and dry her mucous membranes are moist and pink there is no evidence of pallor or anemia. There is no clamminess or diaphoresis. She is moderately anxious. Lungs completely clear with no wheeze rales rhonchi or retractions. She speaks in complete sentences. There is no stridor or upper airway symptomatology. Heart sounds are normal with no murmur and rhythm is normal. Extremities show no evidence of DVT phlebitis erythema warmth or swelling. Neurological her cognition and mentation are normal. No evidence of BLOOD BANK MANAGER infection. Constitutional Vital Signs, click to edit/add: Last Vital Signs Temp 98.4 F 01/16/24 11:37 Pulse 87 01/16/24 11:37 Resp 18 01/16/24 11:37 BP 136/92 H 01/16/24 11:37 Pulse Ox 99 01/16/24 11:45 O2 Del Method Room Air 01/16/24 11:45 Course Vital Signs Vital signs: Vital Signs Temperature 98.4 F 01/16/24 11:37 Pulse Rate 87 01/16/24 11:37 Respiratory Rate 18 01/16/24 11:37 Blood Pressure 136/92 H 01/16/24 11:37 Pulse Oximetry 99 01/16/24 11:37 Oxygen Delivery Method Room Air 01/16/24 11:37 Temperature 98.4 F 01/16/24 11:37 Pulse Rate 87 01/16/24 11:37 Respiratory Rate 18 03/27/24 11:37 Blood Pressure 136/92 H 01/16/24 11:37 Pulse Oximetry 99 01/16/24 11:45 Oxygen Delivery Method Room Air 01/16/24 11:45 MDM - URI/Sore Throat MDM Narrative Medical decision making narrative: Chest x-ray examination does not show an obvious lobar infiltrate. Her preliminary influenza testing is negative but we have been getting a lot of false negatives today and her symptoms are entirely consistent with influenza type illness. Her doctor is already giving her prescription for an antibiotic/steroid and bronchodilators so she was encouraged to continue that. Her pulse oximetry is 100% on room air at the time of discharge. She does not work so she does not need a work note. She was told that the cough can persist for several weeks Lab Data Labs: Lab Results 01/16/24 01/16/24 Range/Units 12:22 12:24 WBC 3.0 L (4.0-11.0) 10^3/uL RBC 4.81 (4.20-5.40) 10^6/uL Hgb 14.6 (12.0-16.0) g/dL Hct 44.1 (36.0-48.0) % MCV 91.7 (81.0-99.0) fL MCH 30.4 (26.7-34.0) pg MCHC 33.1 (29.9-35.2) g/dL RDW 12.8 (11.0-15.0) % Plt Count 238 (150-450) 10^3/uL MPV 10.7 (9.5-13.5) fL Neut % (Auto) 47.3 (43.0-75.0) % Lymph % (Auto) 41.1 (20.5-60.0) % [place] % (Auto) 10.7 (1.7-12.0) % Eos % (Auto) 0.3 L (0.9-7.0) % Baso % (Auto) 0.3 (0.2-2.0) % Neut # (Auto) 1.4 (1.4-6.5) 10^3/uL Lymph # (Auto) 1.2 (1.2-3.8) 10^3/uL [place] # (Auto) 0.3 (0.3-0.8) 10^3/uL Eos # (Auto) 0.0 (0.0-0.7) 10^3/uL Baso # (Auto) 0.0 (0.0-0.1) 10^3/uL Abs Immat Gran (auto) 0.01 (0.00-0.03) 10^3/uL Imm/Tot Granulo (auto) 0.3 (0.0-0.5) % VBG pH 7.347 (7.330-7.430) VBG pCO2 51.4 (40.0-52.0) mmHg Influenza Type A Ag Negative Influenza Type B Ag Negative Discharge Plan Discharge Stand Alone Forms: Portal Instructions Chief Complaint: Upper Respiratory Infection Clinical Impression: Acute bronchitis Patient Disposition: Home, Self-Care Time of Disposition Decision: 13:06 Print Language: Portuguese Additional Instructions: Start the prescriptions administered by your family doctor immediately today Referrals: Cici Pagan MD [Primary Care Provider] - 1 week
--- NOTE | 2024-01-16 12:14 | XR_ITS ---
The [address] [address] Patient Name: RAJESH KOROMA MRN: [id number] date: 1975 Sex: F Assigned Patient Location: ED.MAIN Current Patient Location: ER Accession/Order Number: [id number] Exam Date: 01/16/2024 12:38 Report Date: 01/16/2024 12:59 At the request of: PRABHAKAR NICOLE Procedure: XR chest 1V EXAMINATION: XR chest 1V HISTORY: Cough , shortness of breath, fatigue COMPARISON: XR chest 12/13/2023 FINDINGS: LUNGS: Mild haziness within left lateral costophrenic angle. VASCULATURE: No increased pulmonary vasculature. PLEURA: Mild blunting of left lateral costal phrenic angle suggestive of pleural fluid. CARDIAC: No cardiomegaly or cardiac silhouette abnormality. MEDIASTINUM: No visible mass or adenopathy. BONES: No fracture or visible bone lesion. OTHER: Negative. XR/XR chest 1V IMPRESSION: 1. Suspect small amount of left pleural fluid and mild lingular atelectasis versus infiltrates. Electronically authenticated by: JEWELL MCQUEEN Date: 01/16/2024 12:59
--- OUTSIDE RECORDS SUMMARY | 2024-01-16 12:23 | XMS_ITS | CCD ---
Author Organization [facility] Care Team Providers Care Guide Foreign Tour Name Role Phone DARRICK HUMPHRIES Unavailable Unavailable CICI CRENSHAW Unavailable Unavailable CICI CRENSHAW Primary Care Physician JEREMIAH OSWADL Attending Unavailable DR JEWELL MCQUEEN Consulting Unavailable DR CICI CRENSHAW Primary Care Unavailable JEREMIAH OSWALD Admitting Unavailable JEREMIAH OSWALD Consulting Unavailable Lila Junior Unavailable [phone] Cici Crenshaw Unavailable Allergies Allergy Classification Reported Allergen(s) Allergy Type Date of Onset Reaction(s) Facility (6 sources) Desonide Drug Allergy 4 Comment:mitzy howard [facility] Repository (12 sources) Adhesive agent Drug allergy 4 Unknown, ister [facility] (7 sources) Adhesive Tape Drug allergy Comment:mitzy howard [employer] Other (7 sources) CT scan dye Propensity to adverse reactions vomiting [email or web address] [facility] [employer] Other (7 sources) Dye RESIDENTIAL Red 40 (Brusly Red) *PHARMACEUTICAL ADJUV Propensity to adverse reactions 4 Unknown [employer] Other (5 sources) Contrast media Allergy to substance 4 Unknown Reaction [facility] (5 sources) Iodinated Contrast Media Allergy to substance 4 vomiting [facility] Medications Current Medications Medication Drug Class(es) Dates Sig (Normalized) Sig (Original) acetaminophen 325 mg / HYDROcodone bitartrate 5 mg oral tablet (2 sources) Opioid Agonist Start: 02-17-2016 Pillager 325 mg-5 mg oral tablet 2 tab(s), Oral, q4hr for pain, 40 tab(s), Refill(s) 0 Start Date: 03/01/16 Status: Ordered [id number] 200 actuat albuterol 0.09 mg/actuat metered dose inhaler (4 sources) beta2-Adrenergic Agonist Start: 01-16-2024 take 1 puff(s) by inhalation every four to six hours Albuterol Sulfate Active 2 PUFF INHALATION EVERY 4-6 HOURS 6.7 January 16, 2024 10:41am Start: 12-11-2023 End: 01-16-2024 take 1 puff(s) by inhalation every four to six hours Albuterol Sulfate Discontinued 2 PUFF INHALATION EVERY 4-6 HOURS 6.7 December 11, 2023 1:00am January 16, 2024 10:41am Start: 12-11-2023 take 1 puff(s) by in halation every four to six hours Albuterol Sulfate Active 2 PUFF INHALATION EVERY 4-6 HOURS 6.7 December 11, 2023 1:00am Start: 12-11-2023 take 1 puff(s) by in halation every four to six hours Albuterol Sulfate Active 2 PUFF INHALATION EVERY 4-6 HOURS 6.7 December 11, 2023 12:00am amoxicillin 875 mg / clavulanate 125 mg oral tablet (1 source) Penicillin-class Antibacterial Start: 07-03-2023 take 1 tablet by mouth every twelve hours Amoxicillin-Pot Clavulanate 875-125 MG 1 tablet Orally every 12 hrs for 7 days 12 Jun, 2023 Active busPIRone hydrochloride 15 mg oral tablet (10 sources) Start: 12-06-2023 End: 12-18-2023 take 15 mg by mouth twice daily Buspirone Active 15 MG PO Twice daily 60 December 18, 2023 3:09pm Start: 10-05-2023 take 1 tablet by maren th every twelve hours busPIRone HCl 5 MG 1 tablet Orally Twice a day for 30 days Sep, Active take 1 tablet by maren th every twelve hours busPIRone HCl 15 MG 1 tablet Orally Twice a day for 30 days Active cefdinir 300 mg oral capsule (1 source) Cephalosporin Antibacterial Start: 01-16-2024 take 300 mg by mouth twice daily Cefdinir Active 300 MG PO Twice daily 14 January 16, 2024 12:00am meloxicam 15 mg oral tablet (7 sources) Nonsteroidal Anti-inflammatory Drug Start: 12-06-2023 take 15 mg by mouth once daily Meloxicam Active 15 MG PO Daily December 06, 2023 1:00am Meloxicam Active methylPREDNISolone 4 mg oral tablet (7 sources) Corticosteroid Start: 01-16-2024 take 1 tablet by mouth once Methylprednisolone (Medrol (Dandre)) 4 mg tablets,dose pack Active 0 PO per package directions January 16, 2024 12:00am PO PER PKG DIR for 6 days Start: 12-07-2023 End: 12-18-2023 Methylprednisolone Discontin ued 0 PO per package directions December 07, 2023 1:00am December 18, 2023 2:56pm PO PER PKG DIR for 6 days Start: 12-07-2023 Methylpredniso lone Active 0 PO [...] Ordered OTC stool softner (1 source) Start: 02-14-2016 [...] Ordered zolpidem tartrate 5 mg oral tablet (9 sources) gamma-Aminobutyric Acid-ergic Agonist Start: 12-06-2023 End: 12-18-2023 take 5 mg by mouth once daily at bedtime Zolpidem Active 5 MG PO Daily at bedtime December 18, 2023 3:09pm Start: 11-09-2023 take 1 tablet by maren th every twenty-four hours Zolpidem Tartrate 5 MG 1 tablet at bedtime as needed Orally Once a day for 30 days Oct, Active Completed/Discontinued Medications Medication Drug Class(es) Dates Sig (Normalized) Sig (Original) Azithromycin (5 sources) Macrolide Antimicrobial Start: 12-11-2023 End: 12-18-2023 Azithromycin Discontinued 0 PO .COMPLEX December 11, 2023 1:00am December 18, 2023 2:55pm For 250 mg dose pack: take 500 mg today (day 1), then 250 mg for 4 days (days 2-5) PO Start: 12-11-2023 Azithromycin A ctive 0 PO .COMPLEX December 11, 2023 12:00am For 250 mg dose pack: take 500 mg today (day 1), then 250 mg for 4 days (days 2-5) PO Start: 11-07-2023 Azithromycin 2 50 MG as directed Orally 2 tabs po today, then 1 tab daily x 4 more days for 5 Oct, Active cyclobenzaprine hydrochloride 10 mg oral tablet (9 sources) Muscle Relaxant Start: 12-06-2023 End: 12-18-2023 take 10 mg by mouth once daily at bedtime Cyclobenzaprine Discontinued 10 MG PO Daily at bedtime December 06, 2023 1:00am December 18, 2023 2:57pm Start: 08-28-2023 take 1 tablet by maren th every twenty-four hours Cyclobenzaprine HCl 10 MG 1 tablet at bedtime as needed Orally Once a day for 10 days Aug, Active lubiprostone 0.024 mg oral capsule (1 source) Chloride Channel Activator Start: 02-14-2016 take 1 capsule by mouth twice daily Amitiza 24 mcg Cap 24 microgram = 1 cap(s), Oral, BID, # 60 cap(s), Refills(s) 0 Start Date: 02/14/16 Status: Ordered Nirmatrelvir-Ritona vir (Paxlovid) 300 mg (150 mg x 2)-100 mg tablets,dose pack (4 sources) Start: 12-07-2023 End: 12-18-2023 Nirmatrelvir-Ritona vir (Paxlovid) 300 mg (150 mg x 2)-100 mg tablets,dose pack Discontinued 0 PO .COMPLEX December 07, 2023 1:00am December 18, 2023 2:56pm take TWO 150 mg tablets of nirmatrelvir with ONE 100 mg tablet of ritonavir twice daily for 5 days PO Start: 12-07-2023 Nirmatrelvir-R itonavir (Paxlovid) 300 mg (150 mg x 2)-100 mg tablets,dose pack Active 0 PO .COMPLEX December 07, 2023 12:00am take TWO 150 mg tablets of nirmatrelvir with ONE 100 mg tablet of ritonavir twice daily for 5 days PO Toradol 30 mg/ml (4 sources) Start: 08-28-2023 Toradol 30 mg/ ml Aug, 60 mg Problems Active Problems Problem Classification Problem Date Documented Da te Episodic/Chronic Abdominal pain (4 sources) Unspecified abdominal pain; Translations: [UNSPECIFIED ABDOMINAL PAIN] Onset: 10-31-2022 Episodic Anxiety disorders (9 sources) Anxiety; Translations: [Anxiety disorder, unspecified] Chronic Asthma (6 sources) Exacerbation of asthma; Translations: [Unspecified asthma [...] Migraine 02-14-2016 Chronic Miscellaneous mental health disorders (9 sources) Primary insomnia; Translations: [Primary insomnia] 12-06-2023 [...] [Constipation, unspecified] Episodic Other lower respiratory disease (4 sources) Viral respiratory infection; Translations: [Other specified respiratory disorders] 12-07-2023 Episodic Other lower respiratory disease (4 sources) Other specified respiratory disorders; Translations: [Unspecified [...] Hyperhidrosis 02-18-2016 Episodic Other upper respiratory infections (7 sources) Acute maxillary sinusitis, unspecified; Translations: [Acute maxillary sinusitis] Episodic Spondylosis; intervertebral disc disorders; other back problems (7 sources) Muscle spasm of back; Translations: [Low back pain] Onset: 11-02-2022 Episodic Sprains and strains (1 source) Strain of muscle, fascia and tendon of lower back, initial encounter; Translations: [STRAIN MUSC FASC TENDON LW BACK INT] Onset: 11-02-2022 Episodic Syncope (4 sources) Near syncope; Translations: [Syncope and collapse] 12-19-2023 Episodic Unclassified (2 sources) Low back pain, unspecified; Translations: [Low back pain, unspecified] Viral infection (15 sources) Disease caused by 2019-nCoV; Translations: [COVID-19] 12-07-2023 Episodic Past or Other Problems Problem Classification Problem Date Documented Da te Episodic/Chronic Suicide and intentional self-inflicted injury (2 sources) Suicidal thoughts; Translations: [Suicide attempt ] Onset: 10-22-1994 02-15-2022 Episodic Viral infection (7 sources) Disease caused by 2019-nCoV; Translations: [COVID-19] Results Test Name Value Interpretation Reference Range Facility Influenza virus B Ag [Presen ce] in Upper respiratory specimen by Rapid immunoassayon 01-11-2024 FLUBV Ag IA.rapid Ql (Nph) Negative [facility] No Panel Informationon 01-10 Influenza Type A (Rapid) Negative [facility] POC SARS CoV-2 Antigen Negative [facility] AMYLASEon 10-31-2022 Amylase [Catalytic activity/Vol] 82 U/L Normal 25-115 [facility] Comment on above: Performed By: #### A KACIE FARNSWORTH #### [facility] [address] [place] [address] Dr. Amita Leyva CBC AUTO DIFFon 10-31-2022 BASO # 0.0 103/ul Normal 0.0-0.1 [facility] Comment on above: Performed By: #### C BC #### [facility] [address] [place] [address] Dr. Amita Leyva Basophils/100 WBC (Bld) 0.5 % Normal 0.2-2.0 [facility] Comment on above: Performed By: #### C BC #### [facility] [address] [place] [address] Dr. Amita Leyva EO # 0.2 103/ul Normal 0.0-0.7 [facility] Comment on above: Performed By: #### C BC #### [facility] [address] [place] [address] Dr. Amita Leyva Eosinophils/100 WBC (Bld) 2.7 % Normal 0.9-7.0 [facility] Comment on above: Performed By: #### C BC #### [facility] [address] [place] [address] Dr. Amita Leyva Erythrocyte distribution width (RBC) [Ratio] 12.4 % Normal 11.0-15.0 [facility] Comment on above: Performed By: #### C BC #### [facility] [address] [place] [address] Dr. Amita Leyva Hematocrit (Bld) [Volume fraction] 40.8 % Normal 36.0-48.0 [facility] Comment on above: Performed By: #### C BC #### [facility] [address] [place] [address] Dr. Amita Leyva Hemoglobin (Bld) [Mass/Vol] 14.1 g/dL Normal 12.0-16.[address] [facility] Comment on above: Performed By: #### C BC #### [facility] [address] [place] [address] Dr. Amita Leyva IG # 0.02 10e3/ul Normal 0.00-0.03 [facility] Comment on above: Performed By: #### C BC #### [facility] [address] [place] [address] Dr. Amita Leyva IG % 0.4 % Normal 0.0-0.5 [facility] Comment on above: Performed By: #### C BC #### [facility] [address] [place] [address] Dr. Amita Leyva LYMPH # 1.9 103/ul Normal 1.2-3.[address] [facility] Comment on above: Performed By: #### C BC #### [facility] [address] [place] [address] Dr. Amita Leyva Lymphocytes/100 WBC (Bld) 33.3 % Normal 20.5-60.0 [facility] Comment on above: Performed By: #### C BC #### [facility] [address] [place] [address] Dr. Amita Leyva MANUAL DIFF REQ NO Normal [facility] Comment on above: Performed By: #### C BC #### [facility] [address] [place] [address] Dr. Amita Leyva MCH (RBC) [Entitic mass] 30.4 pg Normal 26.7-34.0 [facility] Comment on above: Performed By: #### C BC #### [facility] [address] [place] [address] Dr. Amita Leyva MCHC (RBC) [Mass/Vol] 34.6 g/dL Normal 29.9-35.2 [facility] Comment on above: Performed By: #### C BC #### [facility] [address] [address] [address] Amita Leyva MCV (RBC) [Entitic vol] 87.9 fL Normal 81.0-99.0 [facility] Comment on above: Performed By: #### C BC #### [facility] [address] [address] [address] Amita Leyva MONO # 0.4 103/ul Normal 0.3-0.8 [facility] Comment on above: Performed By: #### C BC #### [facility] [address] [place] [address] Dr. Amita Leyva Monocytes/100 WBC (Bld) 7.7 % Normal 1.7-12.0 [facility] Comment on above: Performed By: #### C BC #### [facility] [address] [place] [address] Dr. Amita Leyva NEUT # 3.1 103/ul Normal 1.4-6.5 [facility] Comment on above: Performed By: #### C BC #### [facility] [address] [place] [address] Dr. Amita Leyva Neutrophils/100 WBC (Bld) 55.4 % Normal 43.0-75.0 [facility] Comment on above: Performed By: #### C BC #### [facility] [address] [place] [address] Dr. Amita Leyva Platelet mean volume (Bld) [Entitic vol] 9.9 fL Normal 9.5-13.[address] [facility] Comment on above: Performed By: #### C BC #### [facility] [address] [place] [address] Dr. Amita Leyva PLT 313 103/ul Normal 150-[address] [facility] Comment on above: Performed By: #### C BC #### [facility] [address] [place] [address] Dr. Amita Leyva RBC 4.64 106/ul Normal 4.20-5.40 [facility] Comment on above: Performed By: #### C BC #### [facility] [address] [place], [place] [address] Dr. Amita Leyva WBC 5.6 103/ul Normal 4.0-11.0 [facility] Comment on above: Performed By: #### C BC #### [facility] [address] [place], [place] [address] ABD/PELVIS WO CONon [...] JEWELL MCQUEEN Date: 2022-10-31 11:31 Normal [facility] ER URINE PROFILEon 3 Bilirubin Ql (U) Negative Normal NEGATIVE [facility] Comment on above: Performed By: #### E RUR, PREGU #### [facility] [address] [place] [address] Dr. Amita Leyva Clarity (U) CLEAR Normal CLEAR [facility] Comment on above: Performed By: #### E RUR, PREGU #### [facility] [address] [place] [address] Dr. Amita Leyva Color (U) LT. YELLOW Normal YELLOW [facility] Comment on above: Performed By: #### E RUR, PREGU #### [facility] [address] [place] [address] Dr. Amita Leyva ERUAHD A micrscopic examina tion will be performed if indicated. Normal [facility] Comment on above: Performed By: #### E RUR, PREGU #### [facility] [address] [place] [address] Dr. mAita Leyva Glucose Ql (U) Negative Normal NEGATIVE [facility] Comment on above: Performed By: #### E RUR, PREGU #### [facility] [address] [place] [address] Dr. Amita Leyva Hemoglobin Ql (U) Negative Normal NEGATIVE [facility] Comment on above: Performed By: #### E RUR, PREGU #### [facility] [address] [place] [address] Dr. Amita Leyva Ketones Ql (U) Negative Normal NEGATIVE [facility] Comment on above: Performed By: #### E RUR, PREGU #### [facility] [address] [place] [address] Dr. Amita Leyva LEUKOCYTES Negative Normal NEGATIVE [facility] Comment on above: Performed By: #### E RUR, PREGU #### [facility] [address] [place] [address] Dr. Amita Leyva Nitrite Ql (U) Negative Normal NEGATIVE [facility] Comment on above: Performed By: #### E RUR, PREGU #### [facility] [address] [place] [address] Dr. Amita Leyva pH (U) 6.0 [pH] Normal 5-9 [facility] Comment on above: Performed By: #### E RUR, PREGU #### [facility] [address] [place] [address] Dr. Amita Leyva SPEC GRAVITY >=1.030 Abnormal 1.005-<=1.025 [facility] Comment on above: Performed By: #### E RUR, PREGU #### [facility] [address] [place] [address] Dr. Amita Leyva UA PROTEIN Negative Normal NEGATIVE/ TRACE [facility] Comment on above: Performed By: #### E RUR, PREGU #### [facility] [address] [place] [address] Dr. Amita eLyva UR MICRO IND NOT INDICATED Normal [facility] Comment on above: Performed By: #### E RUR, PREGU #### [facility] [address] [place] [address] Dr. Amita Leyva Urobilinogen Qn (U) 0.2 {Selina'U}/dL Normal 0.2 - 1.0 [facility] Comment on above: Performed By: #### E RUR, PREGU #### [facility] [address] [place] [address] Dr. Amita Leyva LIPASEon 10-31-2022 Lipase [Catalytic activity/Vol] 152.0 U/L Normal 73.0-393.0 [facility] Comment on above: Performed By: #### A MY, LIPA #### [facility] [address] [place] [address] Dr. Amita Leyva URon 10-31-2022 , QUAL Negative Normal NEGATIVE [facility] Comment on above: Performed By: #### E RUR, PREGU #### [facility] [address] [place] [address] Dr. Amita Leyva PROF 14(COMP METB)on 023 Albumin [Mass/Vol] 4.3 g/dL Normal 3.4-5.0 [facility] Comment on above: Performed By: #### C MP #### [facility] [address] [place] [address] Dr. Amita Leyva Albumin/Globulin [Mass ratio] 1.3 {ratio} Normal [facility] Comment on above: Performed By: #### C MP #### [facility] [address] [place] [address] Dr. Amita Leyva ALP [Catalytic activity/Vol] 69 U/L Normal 46-116 [facility] Comment on above: Performed By: #### C MP #### [facility] [address] [place] [address] Dr. Amita Leyva ALT [Catalytic activity/Vol] 18 U/L Normal 14-59 [facility] Comment on above: Performed By: #### C MP #### [facility] [address] [place] [address] Dr. Amita Leyva Anion gap [Moles/Vol] 13.5 mmol/L Normal [facility] Comment on above: Performed By: #### C MP #### [facility] [address] [place] [address] Dr. Amita Leyva AST [Catalytic activity/Vol] 21 U/L Normal 15-37 [facility] Comment on above: Performed By: #### C MP #### [facility] [address] [place] [address] Dr. Amita Leyva Bilirubin [Mass/Vol] 0.3 mg/dL Normal 0.2-1.0 [facility] Comment on above: Performed By: #### C MP #### [facility] [address] [place] [address] Dr. Amita Leyva Calcium [Mass/Vol] 9.2 mg/dL Normal 8.5-10.1 [facility] Comment on above: Performed By: #### C MP #### [facility] [address] [place] [address] Dr. Amita Leyva Chloride [Moles/Vol] 105 mmol/L Normal 98-107 [facility] Comment on above: Performed By: #### C MP #### [facility] [address] [place] [address] Dr. Amita Leyva CO2 [Moles/Vol] 26.6 mmol/L Normal 21.0-32.0 [facility] Comment on above: Performed By: #### C MP #### [facility] [address] [address] [address] Amita Leyva Creatinine [Mass/Vol] 0.76 mg/dL Normal 0.55-1.02 [facility] Comment on above: Performed By: #### C MP #### [facility] [address] [address] [address] Amita Leyva EGFR-AF CYMRAES >60 Normal >=60 [facility] Comment on above: Performed By: #### C MP #### [facility] [address] [address] [address] Amita Leyva EGFR-NON AF CYMRAES >60 Normal >=60 [facility] Comment on above: Performed By: #### C MP #### [facility] [address] [place] [address] Dr. Amita Leyva Globulin (S) [Mass/Vol] 3.2 g/dL Normal [facility] Comment on above: Performed By: #### C MP #### [facility] [address] [place] [address] Dr. mAita Leyva Glucose [Mass/Vol] 124 mg/dL Critically high 74-106 [facility] Comment on above: Performed By: #### C MP #### [facility] [address] [place] [address] Dr. Amita Leyva Potassium [Moles/Vol] 4.1 mmol/L Normal 3.5-5.[address] [facility] Comment on above: Performed By: #### C MP #### [facility] [address] [place] [address] Dr. Amita Leyva Protein [Mass/Vol] 7.5 g/dL Normal 6.4-8.2 [facility] Comment on above: Performed By: #### C MP #### [facility] [address] [address] [address] Amita Leyva Sodium [Moles/Vol] 141 mmol/L Normal 136-145 [facility] Comment on above: Performed By: #### C MP #### [facility] [address] [place], [place] [address] Dr. Amita Leyva Urea nitrogen [Mass/Vol] 16.0 mg/dL Normal 7.0-18.0 [facility] Comment on above: Performed By: #### C MP #### [facility] [address] [place], [place] [address] Dr. Amita Leyva Urea nitrogen/Creatinin e [Mass ratio] 21.1 mg/mg Normal [facility] Comment on above: Performed By: #### C MP #### [facility] [address] [place], [place] [address] Dr. Amita Leyva US SINGLE QUAD RT [...] by: JEWELL MCQUEEN Date: 2022-10-31 13:17 Normal [facility] Registrationon 12-02-2021 Registration [id number]:1 27 Normal [facility] Cons[place] 11-28-2021 Consent [id number]:12 7 Normal [facility] Registrationon 11-28-2021 Registration [id number]#[id number]:12 7 [facility] CNPNatalie 02-22-2018 CNPN Telephone (GASTTW) Kourtnye LUA ([id number]) 1975 FDate Time Provider Department02/22/18 DARRICK HUMPHRIES GASTTW During your visit today, we recorded the following information about you:Mariano Horner 02/22/2018 10:36 AM AddendJenn Patelanton is calling Darrick Humphries today with concern [...] identified by name and birthdate.Duration of symptoms: N/Delroy calling: selfCall patient at: on [phone] (home) [phone] (cell)Was an appointment scheduled: NoClosing statement:Symptom Call: Thank you for calling [facility], your call is veryimportant. A nurse will call in approximately 2-4 hours during business hours.If this is an emergency, please contact 911.Mariano Millard PsrPt advised to add Miralax to her regimen.Darrick Humphries MD, MPHLisette Mock (Ia) 02/22/2018 10:48 AM SignedPlease advise per message below. Susy Mann 2017 10:47 AMMargie Hart 03/04/2018 3:46 PM SignedPatient is calling in regards to message below. Patient is suppose to havesurgery and the general surgeon will not do surgery on her until the IBS isunder control. Patient would like to know if she can get a letter written to beoff work til she is seen by Dr. Humphries. Please advise [phone], Kaitlin (Rn), RN 03/04/2018 3:52 PM SignedPlease see pt message and advise.Thank you.Dada Yeager RNMay 2017 3:52 PMAllergies As of Date: 02/22/2018(No [...] Status:Closed by DARRICK HUMPHRIES MD on 03/01/18 [facility] [place] 01-16-2018 [facility] Telephone (GASTTW) Kourtney LUA ([id number]) 1975 FDate Time Provider Department01/16/18 LASHNER, DARRICK A GASTTW During your visit today, we recorded the following information about you:Dada Yeager RN, RN 01/16/2018 10:20 AM SignedPA initiated for Trulance via Cover My Meds.Awaiting determination.Dada Yeager [facility]NM[facility] 2017 10:20 AMDada Yeager RN, RN 01/17/2018 1:03 PM SignedPA for trulance approved via cover my meds.Approved on January 16CaseId:[id number],Status: ApprovedCoverage Start Date:12/17/2017;Coverage End Date:01/16/2019CaseId:[id number] notified.Dada Yeager RNMiami [facility] Hospital 2017 1:03 PMAllergies As of Date: [...] Status:Closed by DADA YEAGER on 01/16/18 Normal [facility] CNCOon 01-15-2018 CNCO Letter Wilmer Lua:How to activate your [facility] [employer] Account 1. Visit the [employer] Signup page at [email or web address] 2. Identify yourself using your one-time use activation code: [email or web address] 3. Follow the on-screen prompts to choose your own secure username andpasswordThe following information will be necessary to access your account for thefirst time:Information needed for sign-up:Your custom activation code used one-time only for the initial accountset-up.Your date of birthThe last 4 digits of your social security numberWhat to do next:Fill in the requested information on the Identify Yourself Form [email or web address] , click Next.Create your login and password, choose a [employer] ID and password that will beeasy for you to use, but impossible for anyone else to guess.Pick a security question that will assist you in the event you forget yourpassword the next time you log-on.If you have difficulty activating your account, please call our Executive Channel at [phone] or toll free at .We hope you enjoy using [employer]!Kindest Regards,[facility] [employer] Team Normal [facility] CNOVon 01-15-2018 CNOV Office Visit (GASTTW) Kourtney LUA ([id number]) 1975 FDate Time Provider Department01/15/18 2:40 PM DARRICK HUMPHRIESTW During your visit today, we recorded the following information about you: Pulse Respiration Blood pressure Weight 64/minute 16/minute 143/88 84.4 kgDarrick Humphries MD, MPH 01/15/2018 2:52 PM SignedNAME: Leonela BenavidezGE: 42 year oldReferred by: Cici Crenshaw MD ([facility])[address] [phone] for: an opinion regarding constipation and my [...] daily.Darrick Humphries MD, MPHReferring Provider: CICI CRENSHAW [[id number]]Allergies As of Date: 01/15/2018(No Known Allergies)Date Reviewed: 01/15/2018Reviewed by: Dada (Matias) MATIAS Yeager - Fully AssessedReason for Visit: [...] 625 MG TABLET >> Dada Yeager RN, MATIAS 01/15/2018 2:28 PM >> DADA YEAGER Jan 15, 2018 2:28 PM Not taking ONE-A-DAY WITHIN TABLET >> Dada Yeager RN, MATIAS 01/15/2018 2:29 PM >> DADA YEAGER Jan 15, 2018 2:29 PM Not taking ULTRACET 37.5 MG-325 MG TABLET >> Dada Yeager RN, MATIAS [...] Status:Closed by DARRICK HUMPHRIES MD on 01/15/18 [facility] PROGRESSon 01-15-2018 PROGRESS HNO ID: [id number] thor: Darrick Hallmanervice: (none)Author Type: PhysicianType: Progress NotesFiled: 01/15/2018 2:52 PMNote Text:NAME: Leonela JaimengerAGE: 42 year oldReferred by: Cici Crenshaw MD ([facility])[address] [phone] for: an opinion regarding constipation and my [...] Trulance 3mg daily.Darrick Humphries MD, MPH Normal [facility] Vital Signs Date Time Vital Sign Value Performing Clinician Facility 01-16-2024 10:19-0400 Body height 157.48 cm [facility] 01-16-2024 10:19-0400 Body mass index (BMI) [Ratio] 34 kg/m2 [facility] 01-16-2024 10:19-0400 Body weight 84.53 kg [facility] 01-16-2024 10:19-0400 Diastolic blood pressure 74 mm[Hg] [facility] 01-16-2024 10:19-0400 Heart rate 92 /min [facility] 01-16-2024 10:19-0400 SaO2% (BldA) [Mass fraction] 97 % [facility] 01-16-2024 10:19-0400 Systolic blood pressure 127 mm[Hg] [facility] 01-11-2024 09:42-0400 Body height 157.48 cm [facility] 01-11-2024 09:42-0400 Body mass index (BMI) [Ratio] 35.4 kg/m2 [facility] 01-11-2024 09:42-0400 Body temperature 97.1 [degF] [facility] 01-11-2024 09:42-0400 Body weight 87.99 kg [facility] 01-11-2024 09:42-0400 Diastolic blood pressure 83 mm[Hg] [facility] 01-11-2024 09:42-0400 Heart rate 73 /min [facility] 01-11-2024 09:42-0400 Systolic blood pressure 134 mm[Hg] [facility] 12-18-2023 13:50-0500 Body height 157.48 cm [facility] 12-18-2023 13:50-0500 Body mass index (BMI) [Ratio] 35.6 kg/m2 [facility] 12-18-2023 13:50-0500 Body weight 88.5 kg [facility] 12-18-2023 13:50-0500 Diastolic blood pressure 77 mm[Hg] [facility] 12-18-2023 13:50-0500 Heart rate 80 /min [facility] 12-18-2023 13:50-0500 SaO2% (BldA) [Mass fraction] 97 % [facility] 12-18-2023 13:50-0500 Systolic blood pressure 142 mm[Hg] [facility] 11-09-2023 10:15-0500 Body height 157.48 cm [facility] 11-09-2023 10:15-0500 Body weight 89.81 kg [facility] 11-09-2023 10:15-0500 Diastolic blood pressure 76 mm[Hg] [facility] 11-09-2023 10:15-0500 Systolic blood pressure 159 mm[Hg] [facility] 08-28-2023 13:30-0500 Body height 157.48 cm Lila Junior Other [facility] Other 08-28-2023 13:30-0500 Body mass index (BMI) [Ratio] 36.58 kg/m2 Lila Junior Other [facility] Other 08-28-2023 13:30-0500 Body weight 90.72 kg Lila Junior Other [facility] Other 08-28-2023 13:30-0500 Diastolic blood pressure 84 mm[Hg] Lila Junior Other [facility] Other 08-28-2023 13:30-0500 SaO2% (BldA) [Mass fraction] 98 % Lila Junior Other [facility] Other 08-28-2023 13:30-0500 Systolic blood pressure 124 mm[Hg] Lila Junior Other [facility] Other 08-14-2023 14:00-0400 Body height 157.48 cm Lila Junior Other [facility] Other 08-14-2023 14:00-0400 Body mass index (BMI) [Ratio] 36.03 kg/m2 Lila Madisonacher Other [facility] Other 08-14-2023 14:00-0400 Body weight 89.36 kg Lila Vur Other [facility] Other 08-14-2023 14:00-0400 Diastolic blood pressure 86 mm[Hg] Lila Vur Other [facility] Other 08-14-2023 14:00-0400 SaO2% (BldA) [Mass fraction] 99 % Lila Adairchristophjose danieldawn Other [facility] Other 08-14-2023 14:00-0400 Systolic blood pressure 140 mm[Hg] Lila Vur Other [facility] Other 07-03-2023 14:00-0400 Body height 157.48 cm Lila Vur Other [facility] Other 07-03-2023 14:00-0400 Body mass index (BMI) [Ratio] 36.28 kg/m2 Lila Vur Other [facility] Other 07-03-2023 14:00-0400 Body weight 89.99 kg Lila Vur Other [facility] Other 07-03-2023 14:00-0400 Diastolic blood pressure 84 mm[Hg] Lila Sandi Other [facility] Other 07-03-2023 14:00-0400 SaO2% (BldA) [Mass fraction] 100 % Lila Adairdiego Other [facility] Other 07-03-2023 14:00-0400 Systolic blood pressure 136 mm[Hg] Lila Sandi Other [facility] Other Encounters Encounter Date Encounter Type Care Provider Facility Start: 01-16-2024 End: 01-16-2024 [facility] Work Phone: Start: 01-16-2024 End: 01-16-2024 Patient encounter procedure [facility] Physician [facility] Work Phone: Start: 01-11-2024 End: 01-11-2024 ambulatory [facility] Work Phone: Start: 01-11-2024 End: 01-11-2024 Patient encounter procedure [facility] Physician [facility] Work Phone: Start: 12-18-2023 End: 12-18-2023 Patient encounter procedure [facility] Physician [facility] Work Phone: Start: 12-11-2023 End: 12-11-2023 ambulatory [facility] Work Phone: Start: 12-11-2023 End: 12-11-2023 Patient encounter procedure [facility] Physician [facility] Work Phone: Start: 12-07-2023 End: 12-07-2023 ambulatory [facility] Work Phone: Start: 12-07-2023 End: 12-07-2023 Patient encounter procedure [facility] Physician [facility] Work Phone: Start: 12-06-2023 End: 12-06-2023 ambulatory [facility] Work Phone: Start: 12-06-2023 End: 12-06-2023 Patient encounter procedure [facility]ician [facility] Work Phone: Start: 11-13-2023 End: 11-13-2023 ambulatory Cici Crenshaw Other [facility] Other Start: 11-13-2023 Telephone encounter Cici Latasha [facility] Start: 11-12-2023 End: 11-12-2023 ambulatory Cici Latasha Other [facility] Other Start: 11-12-2023 Telephone encounter Cici Latasha [facility] Start: 11-09-2023 End: 11-09-2023 Patient encounter procedure [facility] Physician Group- Start: 10-07-2023 Patient encounter procedure [facility] Physician Group- Start: 10-05-2023 End: 10-05-2023 ambulatory Lila Junior Other [facility] Other Start: 10-05-2023 Office outpatient visit 15 minutes Lila Junior [facility] Start: 08-28-2023 End: 08-28-2023 ambulatory Lila Junior Other [facility] Other Start: 08-28-2023 Office outpatient visit 15 minutes Lila Junior [facility] Start: 08-15-2023 End: 08-15-2023 ambulatory Lila Junior Other [facility] Other Start: 08-15-2023 Telephone encounter Lila johnson [facility] Start: 08-14-2023 End: 08-14-2023 ambulatory Lila Junior Other [facility] Other Start: 08-14-2023 Office outpatient visit 15 minutes Lila Sandi [facility] Start: 07-03-2023 End: 07-03-2023 ambulatory Lila Sandi Other [facility] Other Start: 07-03-2023 Office outpatient visit 15 minutes Lila Sandi [facility] Start: 10-31-2022 End: 10-31-2022 ambulatory JEREMIAH MARGRET Facility: Start: 02-22-2022 End: 02-22-2022 Patient encounter procedure Armstrong SALAM [facility] Start: 01-15-2018 End: 01-16-2018 Ambulatory DARRICK HUMPHRIES [facility] Procedures Date Procedure Procedure Detail Performing Clinician Start: 03-03-2016 Left carpal tunnel release Armstrong SALAM Start: 02-18-2016 right carpal tunnel release Armstrong SALAM section Armstrong SALAM Comment on above: x2 H/O: hysterectomy Armstrong KYREE M sweat glands clamped 2 Armstrong SALAM Comment on above: bilateral underarms Payers Date Payer Category Payer Unknown [id number] 1957 Unknown [id number] Medicaid [id number] Private Health Insurance [employer] [id number] Social History Date Type Detail Facility Tobacco smoking status [facility] Sex Assigned At Sex [facility] Sex Assigned At Sex Assigned At Bir th [facility] Other Start: 12-06-2023 End: 12-06-2023 Tobacco smoking status NHIS Never smoked tobacco (finding) [facility] Start: 1975 Sex Assigned At Female F [facility] Clinical Notes 07-03-2023 to 10-05-2023 Note Date [...] verbalizes understanding and agrees to treatment plan. [facility] Other 11-07-2023 Evaluation note* Encounter Date Diagnosis [...] tx plan. Pt ambulated out by self. [facility] Other 10-24-2023 Evaluation note* Encounter Date Diagnosis [...] Jul, Fall, initial encounter (ICD-10 - W19.XXXA) [facility] Other 09-12-2023 Evaluation note* Encounter Date Diagnosis [...] understanding and is agreeable to treatment plan. [facility] Other Evaluation + Plan note No data available for this section [facility] Evaluation noteNo InformationNort [employer] Other Evaluation noteNo assessment information available [facility] Work Phone: Evaluation note* Diagnosis Onset Date Resolution Status Viral respiratory illness ac [place] COVID-19 acute [facility] Work Phone: Evaluation note* Diagnosis Onset Date Resolution Status Viral respiratory illness ac [place] COVID-19 acute Asthma exacerbation acute COVID-19 acute Sinusitis, acute maxillary a cute [facility] Work Phone: Evaluation note* Diagnosis Onset Date Resolution Status Viral respiratory illness ac [place] COVID-19 acute Asthma exacerbation acute COVID-19 acute Sinusitis, acute maxillary a cute COVID-19 acute Pre-syncope acute Primary insomnia acute [facility] Work Phone: Evaluation note* Diagnosis Onset Date Resolution Status Viral respiratory illness ac [place] COVID-19 acute Asthma exacerbation acute COVID-19 acute Sinusitis, acute maxillary a cute COVID-19 acute Pre-syncope acute Primary insomnia acute Acute viral disease acute [facility] Work Phone: History general Narrative - Reported* [...] to the dye in a CT scan [facility] Other [employer] general Narrative - Reported* Type Description Date [...] to the dye in a CT scan [facility] Other Hospital Discharge instructions No data available for this section [facility] Summary Purpose Family History Relationship Condition Age at Onset Recorded Date/T yahaira Not Specified Unknown Neoplasm of brain Unknown Advance Directives Advance Directive Response Recorded Date/ Time Advance Directives No November 10:21am Advance Directive Response Recorded Date/ Time Advance Directives No November 11:21am Chief Complaint and Reason for Visit Chief Complaint Personal Reasons [phone] Chief Complaint Personal Reasons [phone] COVID+ Reason for Visit Viral respiratory il lness COVID-19 Chief Complaint Personal Reasons [phone] COVID+ asthma flare up - discussion on return to work Reason for Visit Viral respiratory il lness COVID-19 Asthma exacerbation COVID-19 Sinusitis, acute maxillary Chief Complaint Personal Reasons [phone] COVID+ asthma flare up - discussion on return to work Almost Passed out at work Headache, Cough Reason for Visit Viral respiratory il lness COVID-19 Asthma exacerbation COVID-19 Sinusitis, acute maxillary COVID-19 Pre-syncope Primary insomnia Chief Complaint Personal Reasons [phone] COVID+ asthma flare up - discussion on return to work Almost Passed out at work Headache, Cough Still Not Feeling Well Reason for Visit Viral respiratory il lness COVID-19 Asthma exacerbation COVID-19 Sinusitis, acute maxillary COVID-19 Pre-syncope Primary insomnia Acute viral disease Additional Source Comments INFORMATION SOURCE (unrecogn ized section and content) DATE CREATED AUTHOR 04/10/2018 [facility] DATE CREATED AUTHOR AUTHOR'S ORGANIZ ATION 02/24/2022 [facility] DATE CREATED AUTHOR AUTHOR'S ORGANIZ ATION 11/02/2022 [facility] REASON FOR VISIT (unrecogniz ed section and content) sinus infectionKnee, Ankle, Pbihd-FzcyR-mhx resultsback pain, pulled musclesinus infectionEKG ResultWork Note? Care Teams (unrecognized sec tion and content) Team Status: Active Member Role Status Dates Cici Crenshaw MD Primary Care Provider Active Team Status: Inactive Member Role Status Dates Cici Crenshaw MD Attending Provider Active St art: November 09, 2023 End: November 09, 2023 Team Status: Inactive Member Role Status Dates Cici Crenshaw MD Primary Care Provider Active Start: December 06, 2023 End: December 06, 2023 Lila Junior APRN SECRETARY OFFICE CLERK-C Attending Provider Active Start: November End: December 06, 2023 Team Status: Inactive Member Role Status Dates Cici Crenshaw MD Primary Care Provide r, Attending Provider Active Start: December 07, 2023 End: December 07, 2023 Team Status: Inactive Member Role Status Dates Cici Crenshaw MD Primary Care Provide r, Attending Provider Active Start: December 11, 2023 End: December 11, 2023 Team Status: Inactive Member Role Status Dates Cici Crenshaw MD Primary Care Provide r, Attending Provider Active Start: December 18, 2023 End: December 18, 2023 Team Status: Inactive Member Role Status Dates Cici Crenshaw MD Primary Care Provide r, Attending Provider Active Start: January 11, 2024 End: January 11, 2024 Team Status: Active Member Role Status Dates Provider Conversion Attending Provider Active St art: October 07, 2023 Team Status: Inactive Member Role Status Dates Cici Crenshaw MD Primary Care Provide r, Attending Provider Active Start: January 16, 2024 End: January 16, 2024 Goals (unrecognized section and content) Goals may [...] BE BASED ON THE PRIMARY CLINICAL RECORDS. [employer] [facility]. provides no warranty or guarantee of the accuracy or completeness of information in this document.
[2024-01-16 12:48] LABS: Basophils Percent Auto 0.3 % (0.2-2.0); Eosinophils Percent Auto 0.3 % (0.9-7.0); Hematocrit 44.1 % (36.0-48.0); Hemoglobin 14.6 g/dL (12.0-16.0); Immature Granulocytes Abs Auto 0.01 10^3/uL (0.00-0.03); Immature Granulocytes Pct Auto 0.3 % (0.0-0.5); Lymphocytes Absolute Auto 1.2 10^3/uL (1.2-3.8); Lymphocytes Percent Auto 41.1 % (20.5-60.0); Mean Corpuscular HGB Conc 33.1 g/dL (29.9-35.2); Mean Corpuscular Hemoglobin 30.4 pg (26.7-34.0); Mean Corpuscular Volume 91.7 fL (81.0-99.0); Mean Platelet Volume 10.7 fL (9.5-13.5); Monocytes Absolute Auto 0.3 10^3/uL (0.3-0.8); Monocytes Percent Auto 10.7 % (1.7-12.0); Neutrophils Absolute Auto 1.4 10^3/uL (1.4-6.5); Neutrophils Percent Auto 47.3 % (43.0-75.0); Platelet Count 238 10^3/uL (150-450); Red Blood Count 4.81 10^6/uL (4.20-5.40); Red Cell Distribution Width 12.8 % (11.0-15.0)
[2024-01-16 12:54] LABS: Influenza Virus A Antigen Negative; Influenza Virus B Antigen Negative; Internal Control Within Normal Limits
[2024-01-16 12:58] LABS: PCO2 VBG 51.4 mmHg (40.0-52.0); pH VBG 7.347 (7.330-7.430)
== END 2024-01-16 13:32 | disposition home or self-care (01) ==
PROVIDERS: Emergency Provider Emergency Medicine Emergency Medical Services; PCP Family Medicine
DX: J20.9 Acute bronchitis, unspecified (principal)
CPT/HCPCS: 36415; 71045; 82800; 85025; 87804; 99284

== ENCOUNTER 2024-12-19 10:57 | Outpatient (OUT) | payer MEDICAID, SELFPAY ==
--- NOTE | 2024-12-19 11:20 | ECG_ITS ---
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
[2024-12-19 11:46] LABS: Basophils Percent Auto 0.5 % (0.2-2.0); Eosinophils Absolute Auto 0.1 10^3/uL (0.0-0.7); Eosinophils Percent Auto 2.3 % (0.9-7.0); Hematocrit 41.9 % (36.0-48.0); Hemoglobin 14.1 g/dL (12.0-16.0); Immature Granulocytes Abs Auto 0.01 10^3/uL (0.00-0.03); Immature Granulocytes Pct Auto 0.2 % (0.0-0.5); Lymphocytes Absolute Auto 2.2 10^3/uL (1.2-3.8); Lymphocytes Percent Auto 37.3 % (20.5-60.0); Mean Corpuscular HGB Conc 33.7 g/dL (29.9-35.2); Mean Corpuscular Hemoglobin 30.7 pg (26.7-34.0); Mean Corpuscular Volume 91.1 fL (81.0-99.0); Mean Platelet Volume 10.5 fL (9.5-13.5); Monocytes Absolute Auto 0.6 10^3/uL (0.3-0.8); Monocytes Percent Auto 9.7 % (1.7-12.0); Neutrophils Absolute Auto 2.9 10^3/uL (1.4-6.5); Platelet Count 317 10^3/uL (150-450); Red Cell Distribution Width 12.7 % (11.0-15.0); White Blood Count 5.8 10^3/uL (4.0-11.0)
[2024-12-19 12:18] LABS: Anion Gap 12.8; BUN Creatinine Ratio 14.9; Calcium 9.4 mg/dL (8.5-10.1); Carbon Dioxide 28.5 mmol/L (21.0-32.0); Chloride 104 mmol/L (98-107); Estimated GFR (African America >60 (>=60 mL/min/1.73m^2); Estimated GFR (Non-African Ame >60 (>=60 mL/min/1.73m^2); Glucose 101 mg/dL (74-106); Potassium 4.3 mmol/L (3.5-5.1); Sodium 141 mmol/L (136-145); TSH W/ REFLEX FT4 2.276 uIU/mL (0.358-3.740); Troponin I High Sensitivity 6.2 pg/mL (4.0-51.3)
== END 2024-12-19 10:58 | disposition home or self-care (01) ==
LOC: LAB 11:00
PROVIDERS: PCP Family Medicine; Visit Provider Family Medicine
DX: R07.9 Chest pain, unspecified (principal); I10 Essential (primary) hypertension
CPT/HCPCS: 36415; 80048; 84443; 84484; 85025; 93005

== ENCOUNTER 2025-10-05 22:26 | Emergency (ER) | payer OTHER, SELFPAY ==
[2025-10-05 22:32] VITALS: BP 151/87; PULSE 76; TEMP 36.4; O2SAT 98; BMI 34.8
--- NOTE | 2025-10-05 22:40 | ECG_ITS ---
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
--- NOTE | 2025-10-05 22:51 | ED.GENADUL1 ---
HPI HPI - General Adult General Chief complaint: Chest Pain Stated complaint: NAUSEAUS, DIZZY, VOMITING Time Seen by Provider: 10/05/25 22:36 Source: patient Mode of arrival: walk-in Limitations: no limitations History of Present Illness HPI narrative: patient presents complaining of acute onset of dizziness at work associated with nausea. Dizziness worse when supine. No headache or vision changes. No fever. Was able to drive herself here from work. Past history of IBSC Related Data Home Medications ?Medication ?Instructions ?Recorded ?Confirmed losartan 100 mg tablet 100 mg PO DAILY 10/05/25 10/05/25 meloxicam 15 mg tablet 15 mg PO DAILY 10/05/25 10/05/25 Allergies Allergy/AdvReac Type Severity Reaction Status Date / Time No Known Drug Allergies Allergy Verified 10/05/25 22:43 Review of Systems ROS Status of ROS 10 or more systems reviewed and unremarkable except as noted in history and below [facility] Medical History (Updated 10/06/25 @ 00:19 by Marty Ham MD) IBS (irritable bowel syndrome) ?K58.9 - Irritable bowel syndrome, unspecified (ICD-10) Hypertension ?I10 - Essential (primary) hypertension (ICD-10) Exam Constitutional Vital Signs, click to edit/add: Last Vital Signs Temp 97.6 F 10/05/25 22:32 Pulse 76 10/05/25 22:32 Resp 19 10/05/25 22:32 BP 137/78 10/06/25 00:41 Pulse Ox 98 10/05/25 23:25 O2 Del Method Room Air 10/05/25 23:25 Common normals: no apparent distress, average body habitus, oriented x3, no limitations, healthy appearing, alert and well nourished [facility] Common normals: normocephalic and head/scalp atraumatic Tympanic membrane: TMs normal bilaterally Eye Common normals: EOMs intact bilaterally and conjunctivae normal Respiratory Common normals: normal respiratory effort, no retractions, no use of accessory muscles and clear to auscultation bilaterally Cardio Common normals: regular rate, regular rhythm, S1 normal heart sound and S2 normal heart sound GI Common normals: Normal to inspection, nondistended, normoactive bowel sounds present, soft to palpation and non-tender Extremity Common normals: normal to inspection and full ROM Neuro Common normals: oriented x3, CN's II-XII intact bilaterally, moves all extremities and no focal motor deficits Psych Appearance: grossly normal Course Vital Signs Vital signs: Vital Signs Temperature 97.6 F 10/05/25 22:32 Pulse Rate 76 10/05/25 22:32 Respiratory Rate 19 10/05/25 22:32 Blood Pressure 151/87 H 10/05/25 22:32 Pulse Oximetry 98 10/05/25 22:32 Temperature 97.6 F 10/05/25 22:32 Pulse Rate 76 10/05/25 22:32 Respiratory Rate 19 10/05/25 22:32 Blood Pressure 137/78 10/06/25 00:41 Pulse Oximetry 98 10/05/25 23:25 Oxygen Delivery Method Room Air 10/05/25 23:25 Medical Decision Making MDM Narrative Medical decision making narrative: patient presents with acute onset of dizziness and nausea. Dizziness positional. worse when supine. IV hydration administered along with solumedrol and Phenergan. labs unremarkable. Does have RBS 178 which is likely stress induced. UA suspicous for UTI. No UTI symptoms and urine cx reflex lab ordered. Patient re evaluated and is now laying down and resting comfortbly. Admits she is feeling better. Discharged with prednisone and antivert and is to follow up with her doctor Lab Data Labs: Lab Results 10/05/25 10/05/25 Range/Units 22:55 23:00 WBC 10.5 (4.0-11.0) 10^3/uL RBC 4.92 (4.20-5.40) 10^6/uL Hgb 15.0 (12.0-16.0) g/dL Hct 44.1 (36.0-48.0) % MCV 89.6 (81.0-99.0) fL MCH 30.5 (26.7-34.0) pg MCHC 34.0 (29.9-35.2) g/dL RDW 12.1 (11.0-15.0) % Plt Count 324 (150-450) 10^3/uL MPV 10.4 (9.5-13.5) fL Neut % (Auto) 73.9 (43.0-75.0) % Lymph % (Auto) 17.7 L (20.5-60.0) % [place] % (Auto) 6.8 (1.7-12.0) % Eos % (Auto) 0.7 L (0.9-7.0) % Baso % (Auto) 0.5 (0.2-2.0) % Neut # (Auto) 7.8 H (1.4-6.5) 10^3/uL Lymph # (Auto) 1.9 (1.2-3.8) 10^3/uL [place] # (Auto) 0.7 (0.3-0.8) 10^3/uL Eos # (Auto) 0.1 (0.0-0.7) 10^3/uL Baso # (Auto) 0.1 (0.0-0.1) 10^3/uL Abs Immat Gran (auto) 0.04 H (0.00-0.03) 10^3/uL Imm/Tot Granulo (auto) 0.4 (0.0-0.5) % Sodium 146 H (136-145) mmol/L Potassium 3.8 (3.5-5.1) mmol/L Chloride 105 (98-107) mmol/L Carbon Dioxide 28.4 (21.0-32.0) mmol/L Anion Gap 16.4 BUN 22.0 H (7.0-18.0) mg/dL Creatinine 1.02 (0.55-1.02) mg/dL Est GFR ( Amer) >60 (>=60 mL/min/1.73m^2) Est GFR (Non-Af Amer) 58 L (>=60 mL/min/1.73m^2) BUN/Creatinine Ratio 21.6 Glucose 178 H (74-106) mg/dL Calcium 10.1 (8.5-10.1) mg/dL Total Bilirubin 0.3 (0.2-1.0) mg/dL AST 19 (15-37) U/L ALT 30 (14-59) U/L Alkaline Phosphatase 78 (46-116) U/L Troponin I High Sens 8.4 (4.0-51.3) pg/mL Total Protein 7.9 (6.4-8.2) g/dL Albumin 4.6 (3.4-5.0) g/dL Globulin 3.3 g/dL Albumin/Globulin Ratio 1.4 Lipase 33.0 (16.0-77.0) U/L Urine Color Lt. yellow (YELLOW) Urine Clarity Clear (CLEAR) Urine pH 7.0 (5.0-9.0) Ur Specific [place] 1.020 (1.005-1.025) Urine Protein 30 A (NEG/TRACE) mg/dL Urine Glucose (UA) Negative (NEGATIVE) mg/dL Urine Ketones Negative (NEGATIVE) mg/dL Urine Occult Blood Large A (NEGATIVE) Urine Nitrite Negative (NEGATIVE) Urine Bilirubin Negative (NEGATIVE) Urine Urobilinogen 0.2 (0.2-1.0) EU/dL Ur Leukocyte Esterase Small A (NEGATIVE) Urine RBC 5-10 A (0-2) #/HPF Urine WBC 0-2 A (NONE SEEN) #/HPF Ur Squamous Epith Cells Few A (NONE/RARE) #/LPF Urine Crystals Seen A (None Seen) #/HPF Amorphous Sediment Moderate Urine Bacteria Trace A (NONE SEEN) #/HPF Urine Casts None seen (NONE SEEN) #/LPF Urine Mucus None seen (NONE SEEN) Ur Culture Indicated? Yes-[facility] [place] Discharge Plan Discharge Chief Complaint: Chest Pain Clinical Impression: Vertigo Patient Disposition: Home, Self-Care Prescriptions / Home Meds: No Action losartan 100 mg tablet 100 mg PO DAILY meloxicam 15 mg tablet 15 mg PO DAILY Print Language: Korean Instructions: Vertigo (ED) Additional Instructions: follow up with your doctor in next 2-3 days for recheck Referrals: Cici Pagan MD [Primary Care Provider, [facility]] - 1 week Discharge Date/Time: 10/06/25 00:45
[2025-10-05 23:10] LABS: Hematocrit 44.1 % (36.0-48.0); Hemoglobin 15.0 g/dL (12.0-16.0); Immature Granulocytes Abs Auto 0.04 10^3/uL (0.00-0.03); Immature Granulocytes Pct Auto 0.4 % (0.0-0.5); Lymphocytes Absolute Auto 1.9 10^3/uL (1.2-3.8); Mean Corpuscular HGB Conc 34.0 g/dL (29.9-35.2); Mean Corpuscular Hemoglobin 30.5 pg (26.7-34.0); Mean Corpuscular Volume 89.6 fL (81.0-99.0); Platelet Count 324 10^3/uL (150-450); Red Blood Count 4.92 10^6/uL (4.20-5.40); White Blood Count 10.5 10^3/uL (4.0-11.0)
[2025-10-05] MEDS: METHYLPREDNISOLONE SOD SUCC PF 125 MG/2 ML VIAL IVP (23:13)
[2025-10-05] MEDS: PROMETHAZINE HCL 25 MG in 0.9 % SODIUM CHLORIDE 50 ML 204 MG IV (23:13)
[2025-10-05] MEDS: 0.9 % SODIUM CHLORIDE 1,000 ML 999 ML IV (23:14)
[2025-10-05 23:21] LABS: Chloride 105 mmol/L (98-107); Potassium 3.8 mmol/L (3.5-5.1); Sodium 146 mmol/L (136-145)
[2025-10-05 23:25] VITALS: O2SAT 98
[2025-10-05 23:31] LABS: Alanine Aminotransferase 30 U/L (14-59); Albumin Globulin Ratio 1.4; Albumin Level 4.6 g/dL (3.4-5.0); Alkaline Phosphatase 78 U/L (46-116); Anion Gap 16.4; Aspartate Amino Transferase 19 U/L (15-37); Blood Urea Nitrogen 22.0 mg/dL (7.0-18.0); Calcium 10.1 mg/dL (8.5-10.1); Carbon Dioxide 28.4 mmol/L (21.0-32.0); Estimated GFR (African America >60 (>=60 mL/min/1.73m^2); Estimated GFR (Non-African Ame 58 (>=60 mL/min/1.73m^2); Globulin 3.3 g/dL; Glucose 178 mg/dL (74-106); Lipase 33.0 U/L (16.0-77.0); Total Protein 7.9 g/dL (6.4-8.2)
[2025-10-05 23:34] LABS: Glucose Urine UA NEGATIVE (NEGATIVE)
[2025-10-05 23:42] LABS: Cast Seen? NONE SEEN #/LPF (NONE SEEN); Crystals Seen? Seen #/HPF (None Seen); Urine Culture Indicated YES-FRMC
--- OUTSIDE RECORDS SUMMARY | 2025-10-05 23:59 | XMS_ITS | Clinical Summary ---
Author Organization [facility] Address [address] [place], [place] [address] Care Team Providers Care Tank Washer Name Role Phone Cici Pagan MD Primary Care Provider [phone] Allergies No known active allergies Medications MedicationSigDispense QuantityRefillsLast FilledStart DateEnd DateStatus FIBERCON 625MG TABLET Take one(1) tablet daily.Active ONE-A-DAY WOMEN'S TABLET Take one(1) tablet daily.Active ULTRACET TABLET two tablets at [id number] LEXAPRO 10MG TABLET Take one(1) tablet daily.Active TYLENOL P.M. EX-STR CAPLET two tablets at lglkwde818Active DULCOLAX 5MG TABLET EC two tablets at pcfwjwk541Active ESTROGENS, CONJUGATED (PREMARIN ORAL) Take 1 tablet by mouth once daily.Active PSYLLIUM HUSK (DAILY FIBER ORAL) Take 1 capsule by mouth three times daily.Active Linaclotide (LINZESS) 72 mcg capsule Take 1 capsule by mouth once daily. Administer on an empty stomach. Swallow whole; DO NOT crush or chew.Active dicyclomine (BENTYL) 10 mg capsule Take 10 mg by mouth as needed.Active plecanatide (TRULANCE) 3 mg tab Take 1 tablet by mouth once daily. 100 tablet Active Social History Tobacco UseTypesPacks/DayYears UsedDateSmoking Tobacco: NeverSmokeless Tobacco: NeverAlcohol UseStandard Drinks/WeekCommentsYes0 (1 standard drink = 0.6 oz pure alcohol)RareArea Deprivation IndexAnswerDate RecordedNational Score (1-100), lower number is lower riskNot on file09/29/2020State Score (1-10), lower number is lower riskNot on file09/29/2020Data from: https://www.neighborhoodatlas.medicine.[facility]/. Last address used for calculationNot on file09/29/2020CommentsNoSex and Gender Information ValueDate RecordedSex Assigned at BirthNot on fileLegal TckAlefbr73/02/2012 10:00 AM ESTGender IdentityNot on fileSexual OrientationNot on file Last Filed Vital Signs Vital SignReadingTime TakenCommentsBlood Ysnqoanm322/8803 2:31 PM EDT Zioho689201/15/2018 2:31 PM EDTTemperature--Respiratory Njjl517101/15/2018 2:31 PM EDTOxygen Saturation--Inhaled Oxygen Concentration--Kkxirg93.4 kg (186 lb 1.6 oz)01/15/2018 2:31 PM EDTHeight--Body Mass Index-- Plan of Treatment Health MaintenanceDue DateLast DoneCommentsAnxiety Mgjvielbw93/29/1995Depression Vkprtpqup25/29/1995HIV Djybvyvhu48/29/1995Hepatitis C Cmqocdqaz49/29/1995 DTaP,Tdap,Td Vaccine (1 - Tdap)1996Hepatitis B Vaccine (1 of 3 - 19+ 3- dose series)1996Cervical Cancer Pyknhfncv26/29/1998Mammogram Screening 2017CT Inflzhwtobuj50/29/2022Cologuard (FIT-DNA)2Colonoscopy 2Colorectal Cancer Kpbogwbed29/29/2022Diabetes Jubwpxxek84/29/2022Fecal Occult Blood2022Lipid Iwahlgwjh91/29/6346Pqoewgropkspl11/29/2022Covid-19 Vaccine ( - 2024- season)2025Influenza Vaccine (#1)2025 Insurance Care Teams Team MemberRelationshipSpecialtyStart DateEnd Date Cici Pagan MD [address] [place] [id number] PCP - GeneralFamily Medicine12/24/17
--- OUTSIDE RECORDS SUMMARY | 2025-10-05 23:59 | XMS_ITS | Clinical Summary ---
Author Organization [facility] Address [address] [place] [address] Care Team Providers Care Banquet Waiter/Waitress Name Role Phone Unavailable Primary Care Provider Unavailabl e Social History Tobacco UseTypesPacks/DayYears UsedDateSmoking Tobacco: Never Assessed CommentsUnknownSex and Gender InformationValueDate RecordedSex Assigned at Not on fileLegal VksKvrdyd77/15/2023 7:16 PM EDTGender IdentityNot on fileSexual OrientationNot on file Last Filed Vital Signs Vital SignReadingTime TakenCommentsBlood Jxxwmmce868/9005 12:00 PM EDT Pulse--Temperature--Respiratory Rate--Oxygen Saturation--Inhaled Oxygen Concentration--Gvxdna88.6 kg (191 lb)02/21/2018 12:00 PM AHVBdmrqk947.2 cm (5' 1.5 )02/21/2018 12:00 PM EDTBody Mass Index35.505 12:00 PM EDT Plan of Treatment Not on file Insurance
[2025-10-06 00:41] VITALS: BP 137/78
== END 2025-10-06 00:45 | disposition home or self-care (01) ==
PROVIDERS: Emergency Provider Internal Medicine; PCP Family Medicine
DX: R42 Dizziness and giddiness (principal)
CPT/HCPCS: 36415; 80053; 81001; 83690; 84484; 85025; 87086; 93005; 96365; 96375; 99284; J2550; J2919